=== PATIENT | male | born 1990 | race Caucasian/White ===

== ENCOUNTER 2016-05-08 16:40 | Emergency (ER) | payer OTHER, BC ==
[2016-05-08] MEDS ORDERED: Morphine 10 MG/ML Syringe IM ONE (16:48)
[2016-05-08] MEDS ORDERED: Sodium Chloride 0.9% 1,000 ML IV ONE (16:50)
[2016-05-08] MEDS ORDERED: Ondansetron 4 MG/2 ML SDV IVPUSH ONE (17:01)
[2016-05-08] MEDS ORDERED: LORazepam 2 MG/ML MDV IVPUSH ONE (17:48)
[2016-05-08] MEDS ORDERED: ceFAZolin 2 GM in Premix Bag 1 BAG IV ONE (17:48)
--- NOTE | 2016-05-08 18:13 | CR ---
EXAM DATE: 05/08/16 PATIENT'S AGE: 25 Patient: DAV MURRIETA Facility: [place], [place] Site . Site : 1990 Study: XRay Extremity hand [id number]/27/2017 5:05:49 PM Ordering Physician: Doctor Wilson Final Report: Indication: Injury Technique: Two views of the right hand Comparison: None available Findings: Bones: A focal irregularity with an ill-defined lucency at the base of the 5th metacarpal medially is of unclear chronicity. No dislocation. Joint spaces: Unremarkable. Soft tissues: Unremarkable. Impression: An age-indeterminate deformity at the base of the 5th metacarpal. Correlate for focal tenderness to exclude an acute fracture. Dictated by James Terry MD @ 05/08/2016 5:17:13 PM Dictated by: James Terry MD @ 05/08/2016 17:17:22 (Electronic Signature) Report Signed by Proxy and Original Signed Document filed in the Medical Record. MTDDee
--- NOTE | 2016-05-08 18:20 | EDM.PDOC ---
ED HPI Trauma - General Chief Complaint: Upper Extremity Injury/Pain Stated Complaint: PT HURT RT HAND Time Seen by Provider: 05/08/16 16:50 Source: Reports: Patient History Limitations: Reports: No limitations - History of Present Illness INITIAL COMMENTS - FREE TEXT/NARRATIVE: History of present illness: [25-year-old male comes in status post acute trauma to right hand with a crushing type injury while it were read hand noted to be slightly deformed at the base of the fingers as well as a significant flap type laceration in the palm and up the worst digit.] Review of systems: As per history of present illness and below otherwise all systems reviewed and negative. Past medical history: As per history of present illness and as reviewed below otherwise noncontributory. Surgical history: As per history of present illness and as reviewed below otherwise noncontributory. Social history: No reported history of drug or alcohol abuse. Family history: As per history of present illness and as reviewed below otherwise noncontributory. Physical exam: HEENT: Atraumatic, normocephalic, pupils reactive, negative for conjunctival pallor or scleral icterus, mucous membranes moist, throat clear, neck supple, nontender, trachea midline. Lungs: Clear to auscultation, breath sounds equal bilaterally, chest nontender. Heart: S1S2, regular, negative for clicks, rubs, or JVD. Abdomen: Soft, nondistended, nontender. Negative for masses or hepatosplenomegaly. Negative for costovertebral tenderness. Pelvis: Stable nontender. Genitourinary: Deferred. Rectal: Deferred. Extremities: Right hand with crush type injury to the base of the fourth phalanx , negative for cords or calf pain. Neurovascular unremarkable. Neuro: Awake, alert, oriented. Cranial nerves II through XII unremarkable. Cerebellum unremarkable. Motor and sensory unremarkable throughout. Exam nonfocal. Discussed case with Dr. 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 This would require patient to go to [facility] which he was reluctant to do, he asked if it could not be taking care of here.. Dr. Haas indicated she would be happy to see him in clinic first thing tomorrow. Diagnostics: [X-ray of right hand] Therapeutics: [IV fluid, morphine, Ativan, Rocephin,] Impression: [Hand laceration with hand fracture] Plan: [Discharge to home with antibiotics and pain medication followup with plastics in the a.m. for followup with Dr. Haas] Definitive disposition and diagnosis as appropriate pending reevaluation and review of above. Allergies/ADRs: Allergies IV Dye Allergy (Uncoded 03/08/16 13:53) Vomiting Home Medications: Ambulatory Orders Cephalexin [Keflex] 750 mg PO QID #40 capsule 05/08/16 Lisdexamfetamine Dimesylate [Vyvanse] 1 tab PO DAILY 05/08/16 [Confirmed ] Past Medical History - Past Health History Medical/Surgical History: Denies Medical/Surgical History Cardiovascular History: Reports: None Respiratory History: Reports: Asthma Other Respiratory History: childhood asthma Gastrointestinal History: Reports: Inflammatory bowel disease, Other (see below) Other Gastrointestinal History: Mesenteric cystic lymphangioma Genitourinary History: Reports: None Other Genitourinary History: 1x UTI Other Musculoskeletal History: right hand and wrist fracture Psychiatric History: Reports: ADHD, Anxiety, Panic attack Endocrine/Metabolic History: Reports: None Dermatologic History: Reports: None - Infectious Disease History Infectious Disease History: Reports: Chicken pox - Past Surgical History HEENT Surgical History: Reports: Tonsillectomy Other HEENT Surgeries/Procedures: adenoidectomy Respiratory Surgical History: Reports: None GI Surgical History: Reports: Other (see below) Other GI Surgeries/Procedures: repair of twisted intestine Male Surgical History: Reports: None Endocrine Surgical History: Reports: None Musculoskeletal Surgical History: Reports: None Social & Family History - Family History Family Medical History: Noncontributory - Tobacco Use Smoking Status *Q: Never Smoker Used Tobacco, but Quit: No Second Hand Smoke Exposure: No - Caffeine Use Caffeine Use: Reports: Coffee, Energy drinks, Tea - Alcohol Use Days Per Week of Alcohol Use: 1 Number of Drinks Per Day: 1 Total Drinks Per Week: 1 - Recreational Drug Use Recreational Drug Use: No Drug Use in Last 12 Months: No Recreational Drug Type: Reports: Marijuana/Hashish Recreational Drug Use Frequency: Not Used In Over 6 Months Recreational Drug Last Use: 4 Review of Systems - Review of Systems Review Of Systems: See Below (See history of present illness) Trauma Exam - Physical Exam Exam: See Below (See history of present illness) Course - Vital Signs Last Recorded V/S: Last Vital Signs Temp 37.1 C 05/08/16 18:15 Pulse 97 05/08/16 18:37 Resp 18 05/08/16 18:37 BP 128/78 05/08/16 18:37 Pulse Ox 99 05/08/16 18:37 - Orders/Labs/Meds Labs: Laboratory Tests 05/08/16 Range/Units 17:15 Urine Opiates Screen NEGATIVE (NEGATIVE) Ur Oxycodone Screen NEGATIVE (NEGATIVE) Urine Methadone Screen NEGATIVE (NEGATIVE) Ur Barbiturates Screen NEGATIVE (NEGATIVE) Ur Phencyclidine Scrn NEGATIVE (NEGATIVE) Ur Amphetamine Screen POSITIVE (NEGATIVE) U Methamphetamines Scrn NEGATIVE (NEGATIVE) U Benzodiazepines Scrn NEGATIVE (NEGATIVE) U Cocaine Metab Screen NEGATIVE (NEGATIVE) U Marijuana (THC) Screen NEGATIVE (NEGATIVE) Meds: Medications Discontinued Medications Generic Name Dose Route Start Last Admin Trade Name Freq PRN Reason Stop Dose Admin Sodium Chloride 1,000 mls @ 999 mls/hr 05/08/16 16:50 05/08/16 17:31 Normal Saline IV 05/08/16 17:50 999 mls/hr STAT ONE Administration Cefazolin Sodium 2,000 mg/ 100 mls @ 100 mls/hr 05/08/16 17:39 Sodium Chloride IV 05/08/16 18:38 ONETIME ONE Cefazolin Sodium/Dextrose 2 gm 50 mls @ 100 mls/hr 05/08/16 17:48 05/08/16 18 :20 / Premix IV 05/08/16 18:17 100 mls/hr ONETIME ONE Administration Lorazepam 1 mg 05/08/16 17:48 05/08/16 18:16 Ativan IVPUSH 05/08/16 17:49 1 mg ONETIME ONE Administration Morphine Sulfate 4 mg 05/08/16 16:48 05/08/16 17:08 Morphine IM 05/08/16 16:49 4 mg ONETIME ONE Administration Ondansetron HCl 4 mg 05/08/16 17:01 05/08/16 17:33 Zofran IVPUSH 05/08/16 17:02 4 mg ONETIME ONE Administration Departure - Departure Time of Disposition: 19:13 Disposition: Home, Self-Care 01 Condition: good Clinical Impression: Fracture of metacarpal bone Qualifiers: Encounter type: initial encounter Metacarpal bone: fifth Fracture type: open Metacarpal location: base Fracture alignment: nondisplaced Laterality: right Qualified Code(s): S62.346B - Nondisplaced fracture of base of fifth metacarpal bone, right hand, initial encounter for open fracture Prescriptions: Cephalexin [Keflex] 750 mg PO QID #40 capsule Instructions: Metacarpal Fracture, [id number] Forms: ED Department Discharge Additional Instructions: The following information is given to patients seen in the emergency department who are being discharged to home. This information is to outline your options for follow-up care. We provide all patients seen in our emergency department with a follow-up referral. The need for follow-up, as well as the timing and circumstances, are variable depending upon the specifics of your emergency department visit. If you don't have a primary care physician on staff, we will provide you with a referral. We always advise you to contact your personal physician following an emergency department visit to inform them of the circumstance of the visit and for follow-up with them and/or the need for any referrals to a consulting specialist. The emergency department will also refer you to a specialist when appropriate. This referral assures that you have the opportunity for follow-up care with a specialist. All of these measure are taken in an effort to provide you with optimal care, which includes your follow-up. Under all circumstances we always encourage you to contact your private physician who remains a resource for coordinating your care. When calling for follow-up care, please make the office aware that this follow-up is from your recent emergency room visit. If for any reason you are refused follow-up, please contact the [facility] Emergency Department at and asked to speak to the emergency department charge nurse. Followup with Dr. Romeo tomorrow as discussed Take medication as discussed Turned ED as needed as discussed [facility] [address] [place] [address], [address] [place] [address]
[2016-05-08 19:55] VITALS: BP 133/87
== END 2016-05-08 19:49 | disposition home or self-care (01) ==
LOC: MW.ED 16:40
DX: S62.346B Nondisplaced fracture of base of fifth metacarpal bone, right hand, initial encounter for open fracture (principal); J45.909 Unspecified asthma, uncomplicated; F41.9 Anxiety disorder, unspecified; Z87.440 Personal history of urinary (tract) infections; Z98.890 Other specified postprocedural states; Z91.041 Radiographic dye allergy status; W23.0XXA Caught, crushed, jammed, or pinched between moving objects, initial encounter
CPT/HCPCS: 73120; 96361; 96365; 96375; 99283; G0478; J0690; J2060; J2270; J2405; J7040; 80305

== ENCOUNTER 2016-07-14 09:59 | Inpatient (IN) | payer OTHER, BC ==
[2016-07-14] MEDS ORDERED: Ondansetron 4 MG Tab.DIS PO PRN (12:13)
[2016-07-14] MEDS ORDERED: KETOPROFEN 50 MG PO PRN (12:17)
[2016-07-14] MEDS: Sodium Chloride 0.9% 1,000 ML IV SCH ×2 (12:55→22:30)
[2016-07-14] MEDS: Piperacillin/Tazobactam 3.375 GM in Sodium Chloride 0.9% 50 ML IV SCH ×3 (12:57→23:00)
[2016-07-14] MEDS: Enoxaparin 40 MG/0.4 ML Syringe SUBCUT SCH (12:57)
--- NOTE | 2016-07-14 13:25 | PCM.HP ---
H&P History of Present Illness - General Date of Service: 07/14/16 Admit Problem/Dx: Admission Diagnosis/Problem Admission Diagnosis/Problem Abdominal pain Source of Information: Patient History Limitations: Reports: No limitations - History of Present Illness Initial Comments - Free Text/Narative: 26-year-old male that is a direct admit from his primary care physician's clinic as he presented with abdominal pain, urinary hesitancy and increased frequency. The patient does have a current diagnosis of panniculitis. He presented to his PCP with 4 days of increased frequency and hesitancy with urination. He has been afebrile. There is no burning, itching or irritation with urination. Denies any discharge. He is unsure if there is blood in the urine as he has been taking an [id number] medication for urinary tract infections that turns his urine orange. Patient notes that with the onset of his urinary symptoms he also has been experiencing left lower quadrant pain and discomfort secondary to his current diagnosis of panniculitis. He is never had these urinary symptoms with prior flareups of this disease. He recently decreased his daily dose of budesonide which he is taking for his pancolitis from 6 mg to 3 mg. With this decrease in dose the patient notes that he began having his left lower quadrant pain. The pain that he experiences with his diverticulitis is always in the left lower corner. At times will radiate to the back. He does see GI specialist at [place] in [place]. He notes that the only thing that would help with his abdominal pain is Toradol and his home medication of Vicoprofen. He did receive a 60 mg IM injection of Toradol by his PCP today. He notes that without the Toradol his pain we'll presented to 3 hours if he only takes ketoprofen. At its worse abdominal pain is rated as 10 out 10. He has been nauseous over the last few days with very little intake but denies any vomiting. Warm baths and heating pad seemed to decrease his abdominal pain. He also notes abdominal spasms when his panniculitis flares up. Patient also notes that he only has a bowel movement every 2 weeks and is currently taking MiraLax every day as recommended by his GI specialist. His last bowel movement was this morning. He denies any dark tarry stools or blood with his bowel movements. Patient has had multiple endoscopies and colonoscopies. In his PCPs clinic a CBC was done showing a white blood cell count of 19,000. BMP was unremarkable. Urinalysis showed the presence of glucose, positive nitrites. Patient is tachycardic at 107 beats per minute. Other vital signs are stable. Prostate exam was done the prostate feeling boggy but not much tenderness with exam. - Related Data Allergies/Adverse Reactions: Allergies Allergy/AdvReac Type Severity Reaction Status Date / Time IV Dye Allergy Vomiting Uncoded 03/08/16 13:53 Home Medications: Home Meds Albuterol [Ventolin HFA] 2 inh IH Q6H PRN 07/14/16 [History] Budesonide [Budesonide EC] 3 mg PO DAILY 07/14/16 [History] Cephalexin 500 mg PO TID 07/14/16 [History] Dextroamphetamine/Amphetamine [Dextroamp-Amphetamin 20 mg Tab] 20 mg PO BID@08, 12 07/14/16 [History] Ketoprofen 50 mg PO Q8H PRN 07/14/16 [History] Zolpidem Tartrate [Zolpidem Tartrate] 5 mg PO BEDTIME PRN 07/14/16 [History] Past Medical History - Past Health History Medical/Surgical History: Denies Medical/Surgical History Cardiovascular History: Reports: None Respiratory History: Reports: Asthma Other Respiratory History: childhood asthma, sports induced asthma Gastrointestinal History: Reports: Inflammatory bowel disease, Other (see below) Other Gastrointestinal History: Mesenteric cystic lymphangioma Genitourinary History: Reports: None Other Genitourinary History: 1x UTI Other Musculoskeletal History: right hand and wrist fracture Psychiatric History: Reports: ADHD, Anxiety, Panic attack Endocrine/Metabolic History: Reports: None Dermatologic History: Reports: None - Infectious Disease History Infectious Disease History: Reports: Chicken pox - Past Surgical History HEENT Surgical History: Reports: Tonsillectomy Other HEENT Surgeries/Procedures: adenoidectomy Respiratory Surgical History: Reports: None GI Surgical History: Reports: Other (see below) Other GI Surgeries/Procedures: repair of twisted intestine Male Surgical History: Reports: None Endocrine Surgical History: Reports: None Musculoskeletal Surgical History: Reports: None Social & Family History - Family History Family Medical History: Noncontributory - Tobacco Use Smoking Status *Q: Never Smoker Used Tobacco, but Quit: No Second Hand Smoke Exposure: No - Caffeine Use Caffeine Use: Reports: Coffee - Alcohol Use Days Per Week of Alcohol Use: 1 Number of Drinks Per Day: 1 Total Drinks Per Week: 1 - Recreational Drug Use Recreational Drug Use: Yes Drug Use in Last 12 Months: No Recreational Drug Type: Reports: Marijuana/Hashish Recreational Drug Use Frequency: Not Used In Over 6 Months Recreational Drug Last Use: 4 H&P Review of Systems - Review of Systems: Review Of Systems: See Below General: Reports: no symptoms HEENT: Reports: no symptoms Pulmonary: Reports: No Symptoms Cardiovascular: Reports: no symptoms Gastrointestinal: Reports: Abdominal pain (Left lower quadrant), Nausea. Denies : Vomiting Genitourinary: Reports: frequency (Increased), other (Hesitancy) Musculoskeletal: Reports: no symptoms Skin: Reports: no symptoms Psychiatric: Reports: no symptoms Neurological: Reports: No Symptoms Hematologic/Lymphatic: Reports: no symptoms Immunologic: Reports: no symptoms Exam - Exam Exam: See Below - Vital Signs Vital Signs: Last Vital Signs Temp 98.8 F 07/14/16 12:04 Pulse 93 07/14/16 10:42 Resp 18 07/14/16 12:04 BP 120/70 07/14/16 12:04 Pulse Ox 97 07/14/16 12:04 Weight: 167 lb 5.294 oz - Exam Quality Assessment: DVT prophylaxis (scd's, Lovenox) General: alert, oriented, cooperative Lungs: Clear to auscultation, Normal respiratory effort Cardiovascular: regular rhythm, tachycardia (107) Abdomen: normal bowel sounds, soft, tenderness (Left lower quadrant.), other ( Active spasm noted in the left lower quadrant.) Rectal (Males) Exam: Other (Prostate with palpation does feel boggy. No tenderness with exam.) Extremities: 3, normal inspection, 10 Peripheral Pulses: 2+: radial (L), radial (R) Skin: warm, dry, intact Neuro Extensive - Mental Status: alert, oriented x3, normal mood/affect, normal cognition Psychiatric: alert, normal affect, normal mood *Q Meaningful Use (ADM) - VTE *Q VTE Criteria *Q: - Stroke *Q Stroke Criteria *Q: - AMI *Q AMI Criteria *Q: - Problem List (1) Panniculitis SNOMED Code(s): 58353916 ICD Code: M79.3 - PANNICULITIS, UNSPECIFIED Status: Acute Current Visit: Yes (2) Dysuria SNOMED Code(s): 38623864 ICD Code: R30.0 - DYSURIA Status: Acute Current Visit: Yes (3) Urinary tract infection SNOMED Code(s): 50626927 ICD Code: N39.0 - URINARY TRACT INFECTION, SITE NOT SPECIFIED Status: Acute Priority: Medium Current Visit: No Problem List Initiated/Reviewed/Updated: Yes Orders Last 24hrs: Active Orders 24 hr Category Date Time Status Patient Status [ADT] Routine ADT 07/14/16 12:13 Active Antiembolic Devices [RC] PER UNIT ROUTINE Care 07/14/16 12:17 Active Communication Order [RC] ROUTINE Care 07/14/16 12:20 Active Intake and Output [RC] Q12H Care 07/14/16 12:14 Active Notify Provider Vital Signs [RC] ASDIRECTED Care 07/14/16 12:14 Active Oxygen Therapy [RC] PRN Care 07/14/16 12:13 Active Pulse Oximetry [RC] PRN Care 07/14/16 12:14 Active Up With Assistance [RC] ASDIRECTED Care 07/14/16 12:13 Active VTE/DVT Education [RC] PER UNIT ROUTINE Care 07/14/16 12:13 Active Vital Signs [RC] Q4H Care 07/14/16 12:13 Active Nothing per Oral Now Diet [DIET] Diet 07/14/16 Breakfast Active Abdomen Pelvis w wo Cont [CT] Routine Exams 07/14/16 12:21 Ordered BASIC METABOLIC PANEL,BMP [CHEM] AM Lab 07/15/16 05:11 Ordered BASIC METABOLIC PANEL,BMP [CHEM] AM Lab 07/16/16 05:11 Ordered BASIC METABOLIC PANEL,BMP [CHEM] AM Lab 07/17/16 05:11 Ordered CBC WITH AUTO DIFF [HEME] AM Lab 07/15/16 05:11 Ordered CBC WITH AUTO DIFF [HEME] AM Lab 07/16/16 05:11 Ordered CBC WITH AUTO DIFF [HEME] AM Lab 07/17/16 05:11 Ordered Clostridium Difficile [CDIFF TOX A+B] [OP] Routine Lab 07/14/16 12:19 Uncollected Cephalexin [Keflex] Med 07/14/16 14:00 Active 500 mg PO TID Enoxaparin [Lovenox] Med 07/14/16 12:15 Active 40 mg SUBCUT DAILY Meloxicam [Mobic] Med 07/14/16 13:30 Ordered 7.5 mg PO DAILY Ondansetron [Zofran ODT] Med 07/14/16 12:13 Active 4 mg PO Q4H PRN Patient's Own Medication [Ptom] Med 07/15/16 08:00 Active 1 each PO BID@08,12 Patient's Own Medication [Ptom] Med 07/15/16 09:00 Active 1 each PO DAILY Patient's Own Medication [Ptom] Med 07/14/16 12:17 Active 1 each PO Q8H PRN Piperacillin/Tazobactam [Piperacil-Tazobact] 3.375 gm Med 07/14/16 12:00 Active Sodium Chloride 0.9% [Normal Saline] 50 ml IV Q6H Sodium Chloride 0.9% [Normal Saline] 1,000 ml Med 07/14/16 12:15 Active IV ASDIRECTED Zaleplon [Sonata] Med 07/14/16 12:17 Active 5 mg PO BEDTIME PRN Sequential Compression Device [OM.PC] Per Unit Routine Oth 07/14/16 12:14 Ordered Resuscitation Status Routine Resus Stat 07/14/16 12:13 Ordered Medication Orders Cephalexin (Keflex) 500 mg PO TID [facility] Enoxaparin Sodium (Lovenox) 40 mg SUBCUT DAILY [facility] Last Admin: 07/14/16 12:57 Dose: 40 mg Piperacillin Sod/Tazobactam (Sod 3.375 gm/ Sodium Chloride) 50 mls @ 100 mls/ hr IV Q6H [facility] Last Admin: 07/14/16 12:57 Dose: 100 mls/hr Sodium Chloride (Normal Saline) 1,000 mls @ 125 mls/hr IV ASDIRECTED [facility] Last Admin: 07/14/16 12:55 Dose: 125 mls/hr Ondansetron HCl (Zofran Odt) 4 mg PO Q4H PRN PRN Reason: nausea, able to take PO Budesonide [ (Budesonide Ec] 6 Mg) 1 each PO DAILY [facility] Dextroamphetamine/Amphetamine [ Dextroamp-Amphetamin 20 Mg 1 each PO BID@08,12 [facility] Ketoprofen [ (Ketoprofen] 50 Mg) 1 each PO Q8H PRN PRN Reason: Pain Zaleplon (Sonata) 5 mg PO BEDTIME PRN PRN Reason: Sleep Assessment/Plan Comment:: 18-year-old male who was admitted with urinary hesitancy, increased frequency and abdominal pain secondary to panniculitis. #1 panniculitis: -To rule out other abdominal causes of the patient's abdominal pain, we will get an abdomen/pelvis CT. White blood cell count is 19,000. -Patient will be started on Zosyn 3.375 g IV every 6 hours. -IV normal saline fluids at 125 cc/hour. Home Medications have been resumed -his Budesonide has been increased to 6 mg daily from 3 mg. Patient was asymptomatic on 6 mg daily. -He did receive an IM Toradol injection in his PCPs clinic today. -Patient is currently NPO and will have his diet changed once CT results are back and if no further interventions are needed. -Differential also includes prostatitis secondary to body feeling prostate. #2. UTI: -Continue Keflex 500 mg 3 times a day which the patient is taking for recent hand surgery. -UA shows + nitrites -urine culture pending. Disposition: 2-4 days pending improvement.
[2016-07-14] MEDS ORDERED: Meloxicam 7.5 MG Tab PO SCH (13:30)
[2016-07-14] MEDS: Cephalexin 250 MG Cap PO SCH ×2 (14:24→22:54)
[2016-07-14] MEDS ORDERED: Iopamidol 755 MG/ML 500 ML Multipack Bottle IVPUSH STA (15:49)
[2016-07-14] MEDS ORDERED: traMADol 50 MG Tab PO PRN (15:50)
--- NOTE | 2016-07-14 16:06 | CT ---
CT of the abdomen and pelvis with contrast. HISTORY: Pain TECHNIQUE: Axial CT images were obtained of the abdomen and pelvis following administration of 100 m L of Isovue-370 in the left antecubital fossa without complication. Coronal and sagittal reconstruct ions obtained. FINDINGS: The lung bases are clear, no pleural effusion. The liver, spleen, adrenal glands, and pancreas appear normal. The gallbladder is unremarkable. Ther e is no bulky retroperitoneal lymphadenopathy or abdominal ascites. The kidneys enhance and function symmetrically without evidence of obstructive uropathy. There are a few prominent loops of jejunum within the left upper quadrant with adjacent stranding. T he degree of wall thickening and stranding appears however less prominent and compared to the CT viv ed 01/26/2015. Contrast is noted within the colon. There is mild mesenteric lymphadenopathy again no sarah. The appendix appears normal. The urinary bladder is normal. There is no bulky pelvic lymphadeno brittani or free pelvic fluid. No suspicious osseous abnormalities identified. IMPRESSION: 1. Mildly prominent loops of jejunum within the left upper quadrant with mild wall thickening and ad jacent stranding. There is no definite evidence of obstruction. This is consistent with patient's hi story of mesenteric lymphangioma. 2. Mild mesenteric lymphadenopathy also noted.
[2016-07-14] MEDS: Acetaminophen/HYDROcodone 325-5 MG Tab PO PRN (19:47)
[2016-07-15 05:47] LABS: CHLORIDE,CL 110 mmol/L (98-110); SODIUM,NA 139 mmol/L (136-146)
[2016-07-15] MEDS: Cephalexin 250 MG Cap PO SCH ×2 (05:47→14:12)
[2016-07-15] MEDS: Piperacillin/Tazobactam 3.375 GM in Sodium Chloride 0.9% 50 ML IV SCH ×3 (05:50→18:06)
[2016-07-15] MEDS: Sodium Chloride 0.9% 1,000 ML IV SCH (07:05)
[2016-07-15] MEDS: Acetaminophen/HYDROcodone 325-5 MG Tab PO PRN ×2 (08:30→15:08)
[2016-07-15] MEDS: Enoxaparin 40 MG/0.4 ML Syringe SUBCUT SCH (08:30)
[2016-07-15] MEDS ORDERED: BUDESONIDE 6 MG PO SCH (09:00)
[2016-07-15] MEDS ORDERED: Dicyclomine 10 MG Cap PO PRN (12:46)
[2016-07-15] MEDS ORDERED: Morphine 2 MG/ML Syringe IVPUSH PRN (12:47)
[2016-07-15] MEDS ORDERED: Acetaminophen 325 MG Tab PO PRN (13:44)
[2016-07-15] MEDS ORDERED: Ketorolac 30 MG/ML SDV IM ONE (13:45)
[2016-07-15 13:48] VITALS: BP 130/75
--- NOTE | 2016-07-15 13:48 | PCM.PN ---
- Review of Systems Systems Review Comment:: reports abdominal cramping and burning - Patient Data Vitals - most recent: Last Vital Signs Temp 36.6 C 07/15/16 07:00 Pulse 74 07/15/16 07:00 Resp 12 07/15/16 07:00 BP 113/70 07/15/16 07:00 Pulse Ox 96 07/15/16 12:13 Weight - most recent: 75.9 kg I&O - last 24 hours: Intake & Output 07/14/16 07/15/16 07/15/16 22:59 06:59 14:59 Intake Total 1689 615 415 Output Total 880 Balance 809 615 415 Lab Results last 24 hrs: Laboratory Results - last 24 hr 07/15/16 07/15/16 Range/Units 04:50 04:50 WBC 8.84 (4.0-11.0) K/uL RBC 4.47 L (4.50-5.90) M/uL Hgb 12.9 L (13.0-17.0) g/dL Hct 40.1 (38.0-50.0) % MCV 89.7 (80.0-98.0) fL MCH 28.9 (27.0-32.0) pg MCHC 32.2 (31.0-37.0) g/dL RDW Std Deviation 44.5 (28.0-62.0) fl RDW Coeff of [place] 14 (11.0-15.0) % Plt Count 259 (150-400) K/uL MPV 10.60 (7.40-12.00) fL Neut % (Auto) 64.4 (48.0-80.0) % Lymph % (Auto) 22.2 (16.0-40.0) % [place] % (Auto) 10.6 (0.0-15.0) % Eos % (Auto) 2.6 (0.0-7.0) % Baso % (Auto) 0.2 (0.0-1.5) % Neut # (Auto) 5.7 (1.4-5.7) K/uL Lymph # (Auto) 2.0 (0.6-2.4) K/uL [place] # (Auto) 0.9 H (0.0-0.8) K/uL Eos # (Auto) 0.2 (0.0-0.7) K/uL Baso # (Auto) 0.0 (0.0-0.1) K/uL Nucleated RBC % 0.0 /100WBC Nucleated RBCs # 0 K/uL Sodium 139 (136-146) mmol/L Potassium 3.4 L (3.5-5.1) mmol/L Chloride 110 (98-110) mmol/L Carbon Dioxide 24 (21-31) mmol/L BUN 15 (6.0-23.0) mg/dL Creatinine 0.9 (0.6-1.5) mg/dL Est Cr Clr Drug Dosing 131.19 mL/min Estimated GFR (MDRD) > 60.0 ml/min Glucose 117 H (60-110) mg/dL Calcium 7.9 L (8.8-10.8) mg/dL Luis Results last 24 hrs: Microbiology 07/14/16 17:00 Clostridium difficile Toxin A&B (M) - Final Stool / Feces - Stool, Liquid Negative for C.Diff Toxin/AG Med Orders - Current: Current Medications Acetaminophen (Tylenol) 650 mg PO Q4H PRN PRN Reason: Pain Hydrocodone Bitart/Acetaminophen ([place] 325-5 Mg) 1 tab PO Q6H PRN PRN Reason: Pain Last Admin: 07/15/16 08:30 Dose: 1 tab Cephalexin (Keflex) 500 mg PO TID [facility] Last Admin: 07/15/16 05:47 Dose: 500 mg Dicyclomine HCl (Bentyl) 10 mg PO TID PRN PRN Reason: Cramping Last Admin: 07/15/16 12:52 Dose: 10 mg Enoxaparin Sodium (Lovenox) 40 mg SUBCUT DAILY [facility] Last Admin: 07/15/16 08:30 Dose: 40 mg Piperacillin Sod/Tazobactam (Sod 3.375 gm/ Sodium Chloride) 50 mls @ 100 mls/ hr IV Q6H [facility] Last Admin: 07/15/16 12:00 Dose: 100 mls/hr Sodium Chloride (Normal Saline) 1,000 mls @ 125 mls/hr IV ASDIRECTED [facility] Last Admin: 07/15/16 07:05 Dose: 125 mls/hr Ibuprofen (Motrin) 400 mg PO Q6H PRN PRN Reason: Pain Ketorolac Tromethamine (Toradol) 30 mg IM ONETIME ONE Stop: 07/15/16 13:44 Morphine Sulfate (Morphine) 2 mg IVPUSH Q4H PRN PRN Reason: Pain Ondansetron HCl (Zofran Odt) 4 mg PO Q4H PRN PRN Reason: nausea, able to take PO Last Admin: 07/14/16 14:44 Dose: 4 mg Budesonide [ (Budesonide Ec] 6 Mg) 1 each PO DAILY [facility] Last Admin: 07/15/16 08:32 Dose: 1 each Dextroamphetamine/Amphetamine [ Dextroamp-Amphetamin 20 Mg 1 each PO BID@08,12 [facility] Last Admin: 07/15/16 12:02 Dose: 1 each Ketoprofen [ (Ketoprofen] 50 Mg) 1 each PO Q8H PRN PRN Reason: Pain Last Admin: 07/14/16 23:15 Dose: 1 each Zaleplon (Sonata) 5 mg PO BEDTIME PRN PRN Reason: Sleep Discontinued Medications Iopamidol (Isovue Multipack-370 (76%)) 100 ml IVPUSH ONETIME STA Stop: 07/14/16 15:50 Last Admin: 07/14/16 15:49 Dose: 100 ml Meloxicam (Mobic) 7.5 mg PO DAILY [facility] Last Admin: 07/14/16 14:24 Dose: 7.5 mg Tramadol HCl (Ultram) 50 mg PO Q6H PRN PRN Reason: Pain - Exam General: alert, oriented Lungs: Clear to auscultation, Normal respiratory effort Cardiovascular: Regular Rate, Regular Rhythm Abdomen: bowel sounds present, soft, no distension, tenderness (LLQ) Extremities: no edema - Problem List Review Problem List Initiated/Reviewed/Updated: Yes - My Orders Last 24 Hours: My Active Orders 07/15/16 12:46 Dicyclomine [Bentyl] 10 mg PO TID PRN 07/15/16 12:47 Morphine 2 mg IVPUSH Q4H PRN 07/15/16 13:43 Ketorolac [Toradol] 30 mg IM ONETIME ONE 07/15/16 13:44 Acetaminophen [Tylenol] 650 mg PO Q4H PRN 07/15/16 20:00 Ibuprofen [Motrin] 400 mg PO Q6H PRN - Plan Plan:: 18-year-old male who was admitted with urinary hesitancy, increased frequency and abdominal pain secondary to panniculitis. #1 panniculitis: leukocytosis improved, still reports abdominal pain. Patient on zosyn and budisonide increased to 6mg daily. On NSAIDs and acetaminophen for pain as narcotics cause nausea.
[2016-07-15] MEDS ORDERED: Sodium Chloride 0.9% with KCl 1,000 ML IV SCH (15:00)
[2016-07-15] MEDS ORDERED: Ibuprofen 400 MG Tab PO PRN (20:00)
== END 2016-07-15 17:55 | disposition home or self-care (01) | DRG 385 ==
LOC: UNDOADMOB 09:59 → MW.MS 09:59 → OBSVTOIN 12:13
PROVIDERS: ADMIT Internal Medicine; ATTEND Internal Medicine
DX: M79.3 Panniculitis, unspecified (principal); N39.0 Urinary tract infection, site not specified; R30.0 Dysuria; J45.909 Unspecified asthma, uncomplicated; K58.9 Irritable bowel syndrome, unspecified; D18.1 Lymphangioma, any site; F90.9 Attention-deficit hyperactivity disorder, unspecified type; F41.9 Anxiety disorder, unspecified; Z91.041 Radiographic dye allergy status; R50.9 Fever, unspecified; D72.829 Elevated white blood cell count, unspecified
CPT/HCPCS: 36415; 74177; 74177-26; 80048; 85025; 87324; A9270-GY; J1650; J1885; J2543; J3480; J7040; J7050; Q9967

== ENCOUNTER → 2016-07-14 | Outpatient (CLI) | payer OTHER, BC ==
[2016-07-14 09:22] LABS: CHLORIDE,CL 105 mmol/L (98-110); SODIUM,NA 141 mmol/L (136-146)
== END ==
LOC: MW.CHRC 08:38
PROVIDERS: ATTEND Family Medicine
DX: R50.9 Fever, unspecified (principal); D72.829 Elevated white blood cell count, unspecified
CPT/HCPCS: 36415; 80048; 81001; 85025; 87040; 87086

== ENCOUNTER 2016-12-11 12:41 | Observation (INO) | payer OTHER, BC ==
[2016-12-11] MEDS ORDERED: Sodium Chloride 0.9% 10 ML Syringe FLUSH PRN (13:09)
[2016-12-11] MEDS ORDERED: Sodium Chloride 0.9% 2.5 ML Syringe FLUSH PRN (13:09)
[2016-12-11] MEDS ORDERED: Pantoprazole 40 MG Vial IVPUSH ONE (13:09)
--- NOTE | 2016-12-11 13:17 | EDM.PDOC ---
ED HPI GENERAL MEDICAL PROBLEM - General Chief Complaint: Back Pain or Injury Stated Complaint: URINARY ISSUES Time Seen by Provider: 12/11/16 13:11 Source of Information: Reports: Patient History Limitations: Reports: No Limitations - History of Present Illness INITIAL COMMENTS - FREE TEXT/NARRATIVE: HISTORY AND PHYSICAL: 26-year-old male presents with abdominal pain on the left side dating to his back bilaterally History of Present Illness: []November 06 patient had second surgery, in [facility] for bowel resection, cystic areas were removed. Patient had experienced this type of pain previous to having his bowel surgeries. First surgery occurred with Dr. Rhea barnhart at . Patient states that last week he felt he had an obstruction so he drank magnesium citrate. He then experienced 3 days of abdominal pain/ stomach pain Review of Systems: As per history of present illness and below otherwise all systems reviewed and negative. Past medical history: As per history of present illness and as reviewed below otherwise noncontributory. Surgical history: As per history of present illness and as reviewed below otherwise noncontributory. Social history: No reported history of drug or alcohol abuse. Family history: As per history of present illness and as reviewed below otherwise noncontributory. Physical exam: Alert and oriented male answering questions in full sentences without shortness of breath. Nontoxic in appearance HEENT: Atraumatic, normocehpalic, pupils reactive, negative for conjunctival pallor or scleral icterus, mucous membranes moist, throat clear, neck supple, nontender, trachea midline. Lungs: Clear to auscultation, breath sounds equal bilaterally, chest non tender. Heart: S1S2, regular, negative for clicks, rubs, or JVD. Abdomen: Soft, nondistended, tender to light palpation. Healing scar is noted to the left of the navel. Negative for masses or hepatossplenmegaly. Negative for costovertebral tenderness. Pelvis: Stable nontender. Genitourinary: Deferred. Rectal: Deferred Extremities: Atraumatic, negative for cords or calf pain. Neurovascular unremarkable. Neuro: Awake, alert, oriented. Cranial nerves II through XII unremarkable. Cerebellum unremarkable. Motor and sensory unremarkable throughout. Exam nonfocal. Diagnostics: [CBC CMP amylase lipase CT abdomen pelvis without contrast] Therapeutics: [IV 1 L normal saline Protonix] Impression: [abd pain] dehydration Plan: [Discharged to home Take stool softener daily hyocosamine per prescription zofran per prescription Definitive disposition and diagnosis as appropriate pending reevaluation and review of above. low back Pain Score (Numeric/FACES): 7 - Related Data Allergies Allergy/AdvReac Type Severity Reaction Status Date / Time IV Dye Allergy Vomiting Uncoded 12/11/16 12:58 Home Meds: Home Meds Dextroamphetamine/Amphetamine [Adderall 20 mg Tablet] 1 tab PO DAILY 12/11/16 [ History] Hyoscyamine [Hyomax-SL] 0.125 mg SL Q4H PRN #21 tab.sl 12/11/16 [Rx] Ondansetron [Zofran ODT] 4 mg PO Q8H #12 tab.dis 12/11/16 [Rx] Past Medical History - Past Health History Medical/Surgical History: Denies Medical/Surgical History Cardiovascular History: Reports: None Respiratory History: Reports: Asthma Other Respiratory History: childhood asthma, sports induced asthma Gastrointestinal History: Reports: Inflammatory Bowel Disease, Other (See Below) Other Gastrointestinal History: Mesenteric cystic lymphangioma Genitourinary History: Reports: None Other Genitourinary History: 1x UTI Other Musculoskeletal History: right hand and wrist fracture Psychiatric History: Reports: ADHD, Anxiety, Panic Attack Endocrine/Metabolic History: Reports: None Dermatologic History: Reports: None - Infectious Disease History Infectious Disease History: Reports: Chicken Pox - Past Surgical History HEENT Surgical History: Reports: Tonsillectomy Other HEENT Surgeries/Procedures: adenoidectomy Respiratory Surgical History: Reports: None GI Surgical History: Reports: Other (See Below) Male Surgical History: Reports: None Endocrine Surgical History: Reports: None Musculoskeletal Surgical History: Reports: None Social & Family History - Family History Family Medical History: Noncontributory - Tobacco Use Smoking Status *Q: Never Smoker Used Tobacco, but Quit: No Second Hand Smoke Exposure: No - Caffeine Use Caffeine Use: Reports: Coffee - Alcohol Use Days Per Week of Alcohol Use: 1 Number of Drinks Per Day: 1 Total Drinks Per Week: 1 - Recreational Drug Use Recreational Drug Use: No Drug Use in Last 12 Months: No Recreational Drug Type: Reports: Marijuana/Hashish Recreational Drug Use Frequency: Not Used In Over 6 Months Recreational Drug Last Use: 4 ED ROS GENERAL - Review of Systems Review Of Systems: ROS reveals no pertinent complaints other than HPI. ED EXAM, GI/ABD - Physical Exam Exam: See Below (See dictation) Course - Vital Signs Last Recorded V/S: Last Vital Signs Temp 36.8 C 12/11/16 12:41 Pulse 101 H 12/11/16 12:41 Resp 16 12/11/16 12:41 BP 124/72 12/11/16 12:41 Pulse Ox 97 12/11/16 12:41 - Orders/Labs/Meds Orders: Active Orders 24 hr Category Date Time Status Abdomen Pelvis wo Cont [CT] Stat Exams 12/11/16 13:09 Taken Sodium Chloride 0.9% [Normal Saline] 1,000 ml Med 12/11/16 15:22 Active IV STAT Sodium Chloride 0.9% [Saline Flush] Med 12/11/16 13:09 Active 10 ml FLUSH ASDIRECTED PRN Sodium Chloride 0.9% [Saline Flush] Med 12/11/16 13:09 Active 2.5 ml FLUSH ASDIRECTED PRN Saline Lock Insert [OM.PC] Stat Oth 12/11/16 13:08 Ordered Medication Orders Sodium Chloride (Normal Saline) 1,000 mls @ 999 mls/hr IV STAT ONE Stop: 12/11/16 16:22 Sodium Chloride (Saline Flush) 10 ml FLUSH ASDIRECTED PRN PRN Reason: Keep Vein Open Last Admin: 12/11/16 14:31 Dose: 10 ml Sodium Chloride (Saline Flush) 2.5 ml FLUSH ASDIRECTED PRN PRN Reason: Keep Vein Open Last Admin: 12/11/16 14:32 Dose: 2.5 ml Labs: Laboratory Tests 12/11/16 12/11/16 12/11/16 Range/Units 13:25 13:25 13:25 WBC 17.50 H (4.0-11.0) K/uL RBC 5.33 (4.50-5.90) M/uL Hgb 15.5 (13.0-17.0) g/dL Hct 46.3 (38.0-50.0) % MCV 86.9 (80.0-98.0) fL MCH 29.1 (27.0-32.0) pg MCHC 33.5 (31.0-37.0) g/dL RDW Std Deviation 43.7 (28.0-62.0) fl RDW Coeff of [place] 14 (11.0-15.0) % Plt Count 319 (150-400) K/uL MPV 10.40 (7.40-12.00) fL Neut % (Auto) 83.1 H (48.0-80.0) % Lymph % (Auto) 8.2 L (16.0-40.0) % [place] % (Auto) 7.6 (0.0-15.0) % Eos % (Auto) 0.9 (0.0-7.0) % Baso % (Auto) 0.2 (0.0-1.5) % Neut # (Auto) 14.5 H (1.4-5.7) K/uL Lymph # (Auto) 1.4 (0.6-2.4) K/uL [place] # (Auto) 1.3 H (0.0-0.8) K/uL Eos # (Auto) 0.2 (0.0-0.7) K/uL Baso # (Auto) 0.0 (0.0-0.1) K/uL Nucleated RBC % 0.0 /100WBC Nucleated RBCs # 0 K/uL Sodium 140 (136-146) mmol/L Potassium 4.3 (3.5-5.1) mmol/L Chloride 100 (98-110) mmol/L Carbon Dioxide 29 (21-31) mmol/L BUN 14 (6.0-23.0) mg/dL Creatinine 1.0 (0.6-1.5) mg/dL Est Cr Clr Drug Dosing 120.71 mL/min Estimated GFR (MDRD) > 60.0 ml/min Glucose 95 (60-110) mg/dL Calcium 9.3 (8.8-10.8) mg/dL Total Bilirubin 0.3 (0.1-1.5) mg/dL AST 62 H (5-40) IU/L ALT 121 H (8-54) IU/L Alkaline Phosphatase 152 H (40-150) Total Protein 7.5 (6.0-8.0) g/dL Albumin 4.1 (3.5-5.0) g/dL Globulin 3.4 (2.0-3.5) g/dL Albumin/Globulin Ratio 1.2 L (1.3-2.8) Amylase 46 (10-90) U/L Lipase 20 (7-80) U/L Urine Color Urine Appearance Urine pH (5.0-8.0) Ur Specific [place] (1.001-1.035) Urine Protein (NEGATIVE) mg/dL Urine Glucose (UA) (NEGATIVE) mg/dL Urine Ketones (NEGATIVE) mg/dL Urine Occult Blood (NEGATIVE) Urine Nitrite (NEGATIVE) Urine Bilirubin (NEGATIVE) Urine Urobilinogen (<2.0) EU/dL Ur Leukocyte Esterase (NEGATIVE) Urine RBC (0-2/HPF) Urine WBC (0-5/HPF) Ur Epithelial Cells (NONE-FEW) Urine Bacteria (NEGATIVE) 12/11/16 Range/Units 13:45 WBC (4.0-11.0) K/uL RBC (4.50-5.90) M/uL Hgb (13.0-17.0) g/dL Hct (38.0-50.0) % MCV (80.0-98.0) fL MCH (27.0-32.0) pg MCHC (31.0-37.0) g/dL RDW Std Deviation (28.0-62.0) fl RDW Coeff of [place] (11.0-15.0) % Plt Count (150-400) K/uL MPV (7.40-12.00) fL Neut % (Auto) (48.0-80.0) % Lymph % (Auto) (16.0-40.0) % [place] % (Auto) (0.0-15.0) % Eos % (Auto) (0.0-7.0) % Baso % (Auto) (0.0-1.5) % Neut # (Auto) (1.4-5.7) K/uL Lymph # (Auto) (0.6-2.4) K/uL [place] # (Auto) (0.0-0.8) K/uL Eos # (Auto) (0.0-0.7) K/uL Baso # (Auto) (0.0-0.1) K/uL Nucleated RBC % /100WBC Nucleated RBCs # K/uL Sodium (136-146) mmol/L Potassium (3.5-5.1) mmol/L Chloride (98-110) mmol/L Carbon Dioxide (21-31) mmol/L BUN (6.0-23.0) mg/dL Creatinine (0.6-1.5) mg/dL Est Cr Clr Drug Dosing mL/min Estimated GFR (MDRD) ml/min Glucose (60-110) mg/dL Calcium (8.8-10.8) mg/dL Total Bilirubin (0.1-1.5) mg/dL AST (5-40) IU/L ALT (8-54) IU/L Alkaline Phosphatase (40-150) Total Protein (6.0-8.0) g/dL Albumin (3.5-5.0) g/dL Globulin (2.0-3.5) g/dL Albumin/Globulin Ratio (1.3-2.8) Amylase (10-90) U/L Lipase (7-80) U/L Urine Color YELLOW Urine Appearance CLEAR Urine pH 6.5 (5.0-8.0) Ur Specific [place] 1.020 (1.001-1.035) Urine Protein NEGATIVE (NEGATIVE) mg/dL Urine Glucose (UA) NEGATIVE (NEGATIVE) mg/dL Urine Ketones NEGATIVE (NEGATIVE) mg/dL Urine Occult Blood NEGATIVE (NEGATIVE) Urine Nitrite NEGATIVE (NEGATIVE) Urine Bilirubin NEGATIVE (NEGATIVE) Urine Urobilinogen 0.2 (<2.0) EU/dL Ur Leukocyte Esterase NEGATIVE (NEGATIVE) Urine RBC 0-1 (0-2/HPF) Urine WBC 0-1 (0-5/HPF) Ur Epithelial Cells RARE (NONE-FEW) Urine Bacteria RARE (NEGATIVE) Meds: Medications Generic Name Dose Route Start Last Admin Trade Name Freq PRN Reason Stop Dose Admin Sodium Chloride 1,000 mls @ 999 mls/hr 12/11/16 15:22 Normal Saline IV 12/11/16 16:22 STAT ONE Sodium Chloride 10 ml 12/11/16 13:09 12/11/16 14:31 Saline Flush FLUSH 10 ml ASDIRECTED PRN Administration Keep Vein Open Sodium Chloride 2.5 ml 12/11/16 13:09 12/11/16 14:32 Saline Flush FLUSH 2.5 ml ASDIRECTED PRN Administration Keep Vein Open Discontinued Medications Generic Name Dose Route Start Last Admin Trade Name Freq PRN Reason Stop Dose Admin Hyoscyamine 0.125 mg 12/11/16 15:23 Hyosyne PO 12/11/16 15:24 ONETIME ONE Sodium Chloride 1,000 mls @ 999 mls/hr 12/11/16 13:18 12/11/16 14:31 Normal Saline IV 12/11/16 14:18 999 mls/hr STAT ONE Administration Ketorolac Tromethamine 30 mg 12/11/16 15:22 Toradol IVPUSH 12/11/16 15:23 ONETIME ONE Pantoprazole Sodium 80 mg 12/11/16 13:09 12/11/16 14:31 Protonix Iv IVPUSH 12/11/16 13:10 80 mg .BOLUS ONE Administration Departure - Departure Time of Disposition: 15:52 Disposition: Home, Self-Care 01 Condition: Good Clinical Impression: Abdominal pain Qualifiers: Abdominal location: lower abdomen, unspecified Qualified Code(s): R10.30 - Lower abdominal pain, unspecified - Discharge Information Prescriptions: Hyoscyamine [Hyomax-SL] 0.125 mg SL Q4H PRN #21 tab.sl PRN Reason: Abdominal Pain Ondansetron [Zofran ODT] 4 mg PO Q8H #12 tab.dis Referrals: PCP,None [Primary Care Provider] - Forms: ED Department Discharge Additional Instructions: The following information is given to patients seen in the emergency department who are being discharged to home. This information is to outline your options for follow-up care. We provide all patients seen in our emergency department with a follow-up referral. The need for follow-up, as well as the timing and circumstances, are variable depending upon the specifics of your emergency department visit. If you don't have a primary care physician on staff, we will provide you with a referral. We always advise you to contact your personal physician following an emergency department visit to inform them of the circumstance of the visit and for follow-up with them and/or the need for any referrals to a consulting specialist. The emergency department will also refer you to a specialist when appropriate. This referral assures that you have the opportunity for followup care with a specialist. All of these measure are taken in an effort to provide you with optimal care, which includes your followup. Under all circumstances we always encourage you to contact your private physician who remains a resource for coordinating your care. When calling for followup care, please make the office aware that this follow-up is from your recent emergency room visit. If for any reason you are refused follow-up, please contact the emergency department at and asked to speak to the emergency department charge nurse. Continue to hydrate small sips every 20 minutes Zofran has been ordered for you to help with nausea Levsin 0.125mg one tablet every 4 hours when necessary abdominal cramping Follow-up with your specialist at [facility] Recommend that you take stool softener daily - My Orders Last 24 Hours: My Active Orders 12/11/16 13:08 Saline Lock Insert [OM.PC] Stat 12/11/16 13:09 Abdomen Pelvis wo Cont [CT] Stat Sodium Chloride 0.9% [Saline Flush] 10 ml FLUSH ASDIRECTED PRN Sodium Chloride 0.9% [Saline Flush] 2.5 ml FLUSH ASDIRECTED PRN 12/11/16 15:22 Sodium Chloride 0.9% [Normal Saline] 1,000 ml IV STAT - Assessment/Plan Last 24 Hours: My Active Orders 12/11/16 13:08 Saline Lock Insert [OM.PC] Stat 12/11/16 13:09 Abdomen Pelvis wo Cont [CT] Stat Sodium Chloride 0.9% [Saline Flush] 10 ml FLUSH ASDIRECTED PRN Sodium Chloride 0.9% [Saline Flush] 2.5 ml FLUSH ASDIRECTED PRN 12/11/16 15:22 Sodium Chloride 0.9% [Normal Saline] 1,000 ml IV STAT
[2016-12-11] MEDS ORDERED: Sodium Chloride 0.9% 1,000 ML IV ONE ×2 (13:18→15:22)
[2016-12-11 13:54] LABS: CHLORIDE,CL 100 mmol/L (98-110); SODIUM,NA 140 mmol/L (136-146)
[2016-12-11] MEDS ORDERED: Ketorolac 30 MG/ML SDV IVPUSH ONE (15:22)
[2016-12-11] MEDS ORDERED: Hyoscyamine 0.125 MG/ML Bottle PO ONE (15:23)
[2016-12-11] MEDS ORDERED: Hyoscyamine 0.125 MG Tab.SL PO ONE (16:15)
[2016-12-11] MEDS ORDERED: Morphine 10 MG/ML Syringe IV ONE (16:48)
--- NOTE | 2016-12-11 16:52 | CT ---
EXAM DATE: 12/11/16 PATIENT'S AGE: 26 Patient: DAV MURRIETA Facility: [place], [place] Site . Site : [id number] Study: CT Abdomen/Pelvis [id number] 1:57:05 PM Ordering Physician: Doctor Wilson Final Report: INDICATION: Abdominal pain. TECHNIQUE: CT abdomen and pelvis without contrast. COMPARISON: 03/08/2016. FINDINGS: LOWER CHEST: Unremarkable. LIVER: Normal in size and attenuation. No masses. GALLBLADDER AND BILE DUCTS: No stones or inflammation. No biliary dilatation. PANCREAS: Unremarkable. No mass or inflammation. SPLEEN: Normal in size. No masses. ADRENAL GLANDS: Normal in size. No nodules. KIDNEYS: Normal in size. No masses, stones, or hydronephrosis. GI TRACT: There is wall thickening and inflammation involving moderately dilated small bowel loops in the proximal jejunum. Remainder of the GI tract is normal in caliber and appearance. VASCULATURE: Unremarkable. LYMPH NODES: Multiple enlarged mesenteric lymph nodes are present in the left upper quadrant. OMENTUM/PERITONEUM/ABDOMINAL WALL: Unremarkable. No sign of mass or infiltration. No free air or significant free fluid. PELVIS: Unremarkable. No pelvic masses. BONES: Unremarkable for age. IMPRESSION: There is dilatation and inflammation of proximal jejunal loops with multiple enlarged mesenteric lymph nodes in the same region of the left upper quadrant. These findings are very similar to those seen on the prior study from February 2016. Recurrent infectious or inflammatory process is suspected. No convincing evidence for internal hernia or mechanical bowel obstruction. Remainder of the exam is unremarkable. Dictated by Vitaliy Castellon MD @ 12/11/2016 3:01:00 PM Dictated by: Vitaliy Castellon MD @ 12/11/2016 15:01:06 (Electronic Signature) Report Signed by Proxy. JOSR
[2016-12-11] MEDS ORDERED: metroNIDAZOLE/Normal Saline 500 MG in Premix Bag 1 BAG IV ONE (16:54)
[2016-12-11] MEDS: Ciprofloxacin in D5W 400 MG in Premix Bag 1 BAG IV SCH ×2 (18:19)
[2016-12-11] MEDS ORDERED: Ketorolac 15 MG/ML SDV IVPUSH PRN (18:21)
--- NOTE | 2016-12-11 18:23 | PCM.HP ---
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 He was recently at [facility] where he reportedly had six inches of bowel removed. He presents today with four day history of left abdominal pain that radiates to the back. He was seen in the ED and noted to have a leukocytosis of 17,000. CT scan of abdomen reported multiple dilated and inflammed loops of jejunum and enlarged mesenteric lymph nodes with no evidence of mechanical obstruction. low back Pain Score (Numeric/FACES): 4 - Related Data Allergies/Adverse Reactions: Allergies Allergy/AdvReac Type Severity Reaction Status Date / Time IV Dye Allergy Vomiting Uncoded 12/11/16 12:58 Home Medications: Home Meds Dextroamphetamine/Amphetamine [Adderall 20 mg Tablet] 20 mg PO DAILY 12/11/16 [ History] Hyoscyamine [Hyomax-SL] 0.125 mg SL Q4H PRN #21 tab.sl 12/11/16 [Rx] Ondansetron [Zofran ODT] 4 mg PO Q8H #12 tab.dis 12/11/16 [Rx] Ciprofloxacin [IJD: Ciprofloxacin HCl] 500 mg PO BID #28 tab 12/12/16 [Rx] Ketoconazole [Nizoral 2% Shampoo] 1 applic TOP Q3D #1 bottle 12/12/16 [Rx] metroNIDAZOLE [Flagyl] 500 mg PO Q8H #42 tablet 12/12/16 [Rx] Past Medical History - Past Health History Medical/Surgical History: Denies Medical/Surgical History Cardiovascular History: Reports: None Respiratory History: Reports: Asthma Other Respiratory History: childhood asthma, sports induced asthma Gastrointestinal History: Reports: Inflammatory Bowel Disease, Other (See Below) Other Gastrointestinal History: Mesenteric cystic lymphangioma Genitourinary History: Reports: None Other Genitourinary History: 1x UTI Other Musculoskeletal History: right hand and wrist fracture Psychiatric History: Reports: ADHD, Anxiety, Panic Attack Endocrine/Metabolic History: Reports: None Dermatologic History: Reports: None - Infectious Disease History Infectious Disease History: Reports: Chicken Pox - Past Surgical History HEENT Surgical History: Reports: Tonsillectomy Other HEENT Surgeries/Procedures: adenoidectomy Respiratory Surgical History: Reports: None GI Surgical History: Reports: Other (See Below) Male Surgical History: Reports: None Endocrine Surgical History: Reports: None Musculoskeletal Surgical History: Reports: None Social & Family History - Family History Family Medical History: Noncontributory - Tobacco Use Smoking Status *Q: Never Smoker Used Tobacco, but Quit: No Second Hand Smoke Exposure: Yes - Caffeine Use Caffeine Use: Reports: Coffee - Alcohol Use Days Per Week of Alcohol Use: 1 Number of Drinks Per Day: 1 Total Drinks Per Week: 1 - Recreational Drug Use Recreational Drug Use: No Drug Use in Last 12 Months: No Recreational Drug Type: Reports: Marijuana/Hashish Recreational Drug Use Frequency: Not Used In Over 6 Months Recreational Drug Last Use: 4 H&P Review of Systems - Review of Systems: Review Of Systems: ROS reveals no pertinent complaints other than HPI. Exam - Exam Exam: See Below - Vital Signs Vital Signs: Last Vital Signs Temp 37.2 C 12/11/16 17:29 Pulse 98 12/11/16 17:29 Resp 20 12/11/16 17:29 BP 130/67 12/11/16 17:29 Pulse Ox 97 12/11/16 17:29 Weight: 77.8 kg - Exam General: Alert, Oriented, 4 Lungs: Clear to Auscultation, Normal Respiratory Effort Cardiovascular: Regular Rate, Regular Rhythm GI/Abdominal Exam: Soft, Tender (mild tenderness in lower abdomen). No: Guarding, Rigid, Rebound Extremities: Normal Range of Motion, Non-Tender, No Pedal Edema Skin: Warm, Dry, Intact Neurological: No: Focal Deficit - Patient Data Result Diagrams: 12/12/16 04:58 12/12/16 04:58 *Q Meaningful Use (ADM) - VTE *Q VTE Criteria *Q: - Stroke *Q Stroke Criteria *Q: - AMI *Q AMI Criteria *Q: Problem List Initiated/Reviewed/Updated: Yes Orders Last 24hrs: Active Orders 24 hr Category Date Time Status Ketorolac [Toradol] Med 12/11/16 18:21 Ordered 30 mg IVPUSH Q8H PRN metroNIDAZOLE/Normal Saline [Flagyl 500 MG in NS 100 ML Med 12/11/16 18:30 Ordered ] 500 mg Premix Bag 1 bag IV Q8H Medication Orders Ciprofloxacin/Dextrose 400 mg/ (Premix) 200 mls @ 200 mls/hr IV Q12H DIONICIO Last Admin: 12/11/16 18:19 Dose: 200 mls/hr Metronidazole 500 mg/ Premix 100 mls @ 100 mls/hr IV Q8H DIONICIO Sodium Chloride (Saline Flush) 10 ml FLUSH ASDIRECTED PRN PRN Reason: Keep Vein Open Last Admin: 12/11/16 14:31 Dose: 10 ml Sodium Chloride (Saline Flush) 2.5 ml FLUSH ASDIRECTED PRN PRN Reason: Keep Vein Open Last Admin: 12/11/16 14:32 Dose: 2.5 ml Assessment/Plan Comment:: 26 yo male admitted with flare of his mesenteric cystic lymphangioma. Will treat with IV fluids, bowel rest, ciprofloxacin and Flagyl.
[2016-12-11] MEDS ORDERED: Ketorolac 30 MG/ML SDV IVPUSH PRN (18:27)
[2016-12-11] MEDS ORDERED: HYDROmorphone 1 MG/ML Syringe IVPUSH PRN (18:41)
[2016-12-11] MEDS: metroNIDAZOLE/Normal Saline 500 MG in Premix Bag 1 BAG IV SCH (19:45)
[2016-12-11] MEDS: Sodium Chloride 0.9% 1,000 ML IV SCH (21:04)
[2016-12-12] MEDS: Sodium Chloride 0.9% 1,000 ML IV SCH ×2 (00:29→10:22)
[2016-12-12] MEDS: metroNIDAZOLE/Normal Saline 500 MG in Premix Bag 1 BAG IV SCH ×2 (01:41→10:18)
[2016-12-12] MEDS: Ciprofloxacin in D5W 400 MG in Premix Bag 1 BAG IV SCH ×2 (04:01)
[2016-12-12 05:31] LABS: CHLORIDE,CL 110 mmol/L (98-110); SODIUM,NA 140 mmol/L (136-146)
--- NOTE | 2016-12-12 11:35 | PCM.DCSUM1 ---
Discharge Summary - Hospital Course Brief History: 26 yo male with pmh of mesenteric cystic lymphangioma who has had multiple admission for abdominal pain from this inflammatory disease. He was recently at [facility] [facility] where he reportedly had six inches of bowel removed. He presents today with four day history of left abdominal pain that radiates to the back. He was seen in the ED and noted to have a leukocytosis of 17,000. CT scan of abdomen reported multiple dilated and inflammed loops of jejunum and enlarged mesenteric lymph nodes with no evidence of mechanical obstruction. - Discharge Data Discharge Date: 12/12/16 Discharge Disposition: Home, Self-Care 01 Condition: Good - Patient Instructions Diet: Full Liquid Diet (start FL for next couple days then slowly advance to GI soft low fiber), GI Soft/Low Residue/Low Fiber Activity: As Tolerated Driving: May Drive Today Showering/Bathing: May Shower Notify Provider of: Fever, Increased Pain, Swelling and Redness, Drainage, Nausea and/or Vomiting - Discharge Plan Prescriptions/Med Rec: Ciprofloxacin [IJD: Ciprofloxacin HCl] 500 mg PO BID #28 tab Hyoscyamine [Hyomax-SL] 0.125 mg SL Q4H PRN #21 tab.sl PRN Reason: Abdominal Pain Ketoconazole [Nizoral 2% Shampoo] 1 applic TOP Q3D #1 bottle metroNIDAZOLE [Flagyl] 500 mg PO Q8H #42 tablet Ondansetron [Zofran ODT] 4 mg PO Q8H #12 tab.dis Home Medications: Home Meds Dextroamphetamine/Amphetamine [Adderall 20 mg Tablet] 20 mg PO DAILY 12/11/16 [ History] Hyoscyamine [Hyomax-SL] 0.125 mg SL Q4H PRN #21 tab.sl 12/11/16 [Rx] Ondansetron [Zofran ODT] 4 mg PO Q8H #12 tab.dis 12/11/16 [Rx] Ciprofloxacin [IJD: Ciprofloxacin HCl] 500 mg PO BID #28 tab 12/12/16 [Rx] Ketoconazole [Nizoral 2% Shampoo] 1 applic TOP Q3D #1 bottle 12/12/16 [Rx] metroNIDAZOLE [Flagyl] 500 mg PO Q8H #42 tablet 12/12/16 [Rx] Patient Handouts: Abdominal Pain, Adult, Ketoconazole shampoo, Ondansetron tablets, Hyoscyamine tablets, Ciprofloxacin tablets, Metronidazole tablets or capsules Referrals: Ken Devlin MD [Physician] - 12/19/16 8:30 am (Please check in at 8: 15 a.m.) - Discharge Summary/Plan Comment DC Time >30 min.: No Discharge Summary/Plan Comment: Discharge Diagnoses: Mesenteric cystic lymphangioma flare Leukocytosis abdominal pain Bart was admitted and treated with Cipro and Flagyl. He was given Toradol for pain and place on bowel rest. This morning he is feeling much better and would like to eat. He is requesting discharge if he is able to tolerate his diet. He has no worsening of pain with eating and would like to be discharged. Leukocytosis improved today to 12,000. Afebrile. He is passing gas and had a BM this morning. He was advised to keep with FL diet for next couple days then slowly advance to GI soft low fiber. We will continue Cipro and Flagy for 2 weeks total. He is to follow with PCP and has already arranged follow up with his [facility] specialist next month. He is to return to ED or clinic if concerns should arise. - General Info Date of Service: 12/12/16 Admission Dx/Problem (Free Text: abdominal pain Subjective Update: Feeling better this morning, pain is minimal requesting diet and discharge. Functional Status: Reports: Pain Controlled, Tolerating Diet, Ambulating, Urinating - Review of Systems General: Reports: No Symptoms. Denies: Fever Pulmonary: Reports: No Symptoms. Denies: Shortness of Breath Cardiovascular: Reports: No Symptoms. Denies: Chest Pain Gastrointestinal: Reports: No Symptoms, Flatus. Denies: Abdominal Pain, Constipation, Diarrhea, Nausea, Vomiting - Patient Data Vitals - Most Recent: Last Vital Signs Temp 98.7 F 12/12/16 08:00 Pulse 86 12/12/16 08:00 Resp 19 12/12/16 08:00 BP 110/56 L 12/12/16 08:00 Pulse Ox 97 12/12/16 08:00 Weight - Most Recent: 77.8 kg I&O - Last 24 hours: Intake & Output 12/11/16 12/12/16 12/12/16 22:59 06:59 14:59 Intake Total 300 1300 1000 Output Total 380 Balance 624 [id number] Lab Results - Last 24 hrs: Laboratory Results - last 24 hr 12/12/16 12/12/16 Range/Units 04:58 04:58 WBC 12.57 H (4.0-11.0) K/uL RBC 4.28 L (4.50-5.90) M/uL Hgb 12.2 L (13.0-17.0) g/dL Hct 37.1 L (38.0-50.0) % MCV 86.7 (80.0-98.0) fL MCH 28.5 (27.0-32.0) pg MCHC 32.9 (31.0-37.0) g/dL RDW Std Deviation 44.3 (28.0-62.0) fl RDW Coeff of [place] 14 (11.0-15.0) % Plt Count 286 (150-400) K/uL MPV 9.90 (7.40-12.00) fL Neut % (Auto) 73.7 (48.0-80.0) % Lymph % (Auto) 14.0 L (16.0-40.0) % Hill % (Auto) 10.0 (0.0-15.0) % Eos % (Auto) 2.1 (0.0-7.0) % Baso % (Auto) 0.2 (0.0-1.5) % Neut # (Auto) 9.3 H (1.4-5.7) K/uL Lymph # (Auto) 1.8 (0.6-2.4) K/uL Hill # (Auto) 1.3 H (0.0-0.8) K/uL Eos # (Auto) 0.3 (0.0-0.7) K/uL Baso # (Auto) 0.0 (0.0-0.1) K/uL Nucleated RBC % 0.0 /100WBC Nucleated RBCs # 0 K/uL Sodium 140 (136-146) mmol/L Potassium 3.9 (3.5-5.1) mmol/L Chloride 110 (98-110) mmol/L Carbon Dioxide 24 (21-31) mmol/L BUN 13 (6.0-23.0) mg/dL Creatinine 0.8 (0.6-1.5) mg/dL Est Cr Clr Drug Dosing 151.10 mL/min Estimated GFR (MDRD) > 60.0 ml/min Glucose 143 H (60-110) mg/dL Calcium 7.8 L (8.8-10.8) mg/dL Med Orders - Current: Current Medications Hydromorphone HCl (Dilaudid) 0.5 mg IVPUSH Q3H PRN PRN Reason: Pain Ciprofloxacin/Dextrose 400 mg/ (Premix) 200 mls @ 200 mls/hr IV Q12H [facility] Last Admin: 12/12/16 04:01 Dose: 200 mls/hr Metronidazole 500 mg/ Premix 100 mls @ 100 mls/hr IV Q8H DIONICIO Last Admin: 12/12/16 10:18 Dose: 100 mls/hr Sodium Chloride (Normal Saline) 1,000 mls @ 125 mls/hr IV ASDIRECTED DIONICIO Last Admin: 12/12/16 10:22 Dose: 125 mls/hr Ketorolac Tromethamine (Toradol) 30 mg IVPUSH Q8H PRN PRN Reason: Pain Last Admin: 12/12/16 00:26 Dose: 30 mg Sodium Chloride (Saline Flush) 10 ml FLUSH ASDIRECTED PRN PRN Reason: Keep Vein Open Last Admin: 12/11/16 14:31 Dose: 10 ml Sodium Chloride (Saline Flush) 2.5 ml FLUSH ASDIRECTED PRN PRN Reason: Keep Vein Open Last Admin: 12/11/16 14:32 Dose: 2.5 ml Discontinued Medications Hyoscyamine (Hyosyne) 0.125 mg PO ONETIME ONE Stop: 12/11/16 15:24 Last Admin: 12/11/16 16:08 Dose: 0.125 ml Hyoscyamine (Hyomax-Sl) 0.125 mg PO ONETIME ONE Stop: 12/11/16 16:16 Last Admin: 12/11/16 16:08 Dose: 0.125 mg Sodium Chloride (Normal Saline) 1,000 mls @ 999 mls/hr IV STAT ONE Stop: 12/11/16 14:18 Last Admin: 12/11/16 14:31 Dose: 999 mls/hr Sodium Chloride (Normal Saline) 1,000 mls @ 999 mls/hr IV STAT ONE Stop: 12/11/16 16:22 Last Admin: 12/11/16 16:08 Dose: 999 mls/hr Metronidazole 500 mg/ Premix 100 mls @ 100 mls/hr IV ONETIME ONE Stop: 12/11/16 17:53 Last Admin: 12/11/16 17:08 Dose: 100 mls/hr Ketorolac Tromethamine (Toradol) 30 mg IVPUSH ONETIME ONE Stop: 12/11/16 15:23 Last Admin: 12/11/16 16:22 Dose: 30 mg Ketorolac Tromethamine (Toradol) 30 mg IVPUSH Q8H PRN PRN Reason: Pain Stop: 12/16/16 18:22 Morphine Sulfate (Morphine) 2 mg IV ONETIME ONE Stop: 12/11/16 16:49 Last Admin: 12/11/16 17:09 Dose: 2 mg Pantoprazole Sodium (Protonix Iv) 80 mg IVPUSH .BOLUS ONE Stop: 12/11/16 13:10 Last Admin: 12/11/16 14:31 Dose: 80 mg - Exam Quality Assessment: Reports: Supplemental Oxygen General: Reports: Alert, Cooperative, No Acute Distress Neck: Reports: Supple Cardiovascular: Reports: Regular Rate, Regular Rhythm GI/Abdominal Exam: Normal Bowel Sounds, Soft, No Organomegaly, No Distention, No Abnormal Bruit, No Mass, Pelvis Stable, Tender (scant tenderness to LLQ) Extremities: Normal Inspection, Normal Range of Motion, Non-Tender, No Pedal Edema, Normal Capillary Refill Skin: Reports: Warm, Dry, Intact Neurological: Reports: No New Focal Deficit *Q Meaningful Use (DIS) - VTE *Q VTE Criteria *Q: - Stroke *Q Stroke Criteria *Q: - AMI *Q AMI Criteria *Q:
[2016-12-12 11:59] VITALS: BP 114/58
== END 2016-12-12 12:20 | disposition home or self-care (01) ==
LOC: MW.ED 12:41 → MW.MS 17:09
PROVIDERS: ADMIT Internal Medicine; ATTEND Internal Medicine
DX: D18.1 Lymphangioma, any site (principal); R10.9 Unspecified abdominal pain; D72.829 Elevated white blood cell count, unspecified; F90.9 Attention-deficit hyperactivity disorder, unspecified type; J45.990 Exercise induced bronchospasm; K58.9 Irritable bowel syndrome, unspecified; Z91.041 Radiographic dye allergy status; Z79.899 Other long term (current) drug therapy; Z87.440 Personal history of urinary (tract) infections; Z90.89 Acquired absence of other organs
CPT/HCPCS: 36415; 74176; 80048; 80053; 81001; 82150; 83690; 85025; 96361; 96365; 96375; 99284; A9270; C9113; J0744; J1885; J2270; J7040; 96366; 96367; 96374; 96376; 99283; G0378

== ENCOUNTER 2017-04-07 13:49 | Emergency (ER) | payer OTHER ==
[2017-04-07] MEDS ORDERED: Ketorolac 60 MG/2 ML SDV IM ONE (14:08)
[2017-04-07] MEDS ORDERED: Acetaminophen/HYDROcodone 325-10 MG Tab PO ONE (14:08)
--- NOTE | 2017-04-07 14:11 | EDM.PDOC ---
ED HPI GENERAL MEDICAL PROBLEM - General Chief Complaint: Back Pain or Injury Stated Complaint: BACK PAIN Time Seen by Provider: 04/07/17 14:06 - History of Present Illness INITIAL COMMENTS - FREE TEXT/NARRATIVE: HISTORY AND PHYSICAL: History of present illness: Patient is a 26-year-old white male presents concern of low back pain he states he was lifting weights in the form of squatting and felt a little pop in his right lower back and had significant pain since he denies numbness weakness incontinence or retention of bowel or bladder denies other concern he states that he did recently get back into lifting Review of systems: As per history of present illness and below otherwise all systems reviewed and negative. Past medical history: As per history of present illness and as reviewed below otherwise noncontributory. Surgical history: As per history of present illness and as reviewed below otherwise noncontributory. Social history: No reported history of drug or alcohol abuse. Family history: As per history of present illness and as reviewed below otherwise noncontributory. Physical exam: HEENT: Atraumatic, normocephalic, pupils reactive, negative for conjunctival pallor or scleral icterus, mucous membranes moist, throat clear, neck supple, nontender, trachea midline. Lungs: Clear to auscultation, breath sounds equal bilaterally, chest nontender. Heart: S1S2, regular, negative for clicks, rubs, or JVD. Abdomen: Soft, nondistended, nontender. Negative for masses or hepatosplenomegaly. Negative for costovertebral tenderness. Pelvis: Stable nontender. Genitourinary: Deferred. Rectal: Deferred. Extremities: Atraumatic, negative for cords or calf pain. Neurovascular unremarkable. Neuro: Awake, alert, oriented. Cranial nerves II through XII unremarkable. Cerebellum unremarkable. Motor and sensory unremarkable throughout. Exam nonfocal. Back: Patient is some paravertebral tenderness of level lumbar spine no vertebral body or point tenderness motor and sensory unremarkable patient is able stand on his toes and back feels deep tendon reflexes are normal Diagnostics: X-ray lumbar spine Therapeutics: Toradol 60 mg IM hydrocodone 10 mg by mouth Impression: #1 acute lumbar strain Definitive disposition and diagnosis as appropriate pending reevaluation and review of above. low back Pain Score (Numeric/FACES): 8 - Related Data Allergies Allergy/AdvReac Type Severity Reaction Status Date / Time IV Dye Allergy Vomiting Uncoded 04/07/17 13:55 Home Meds: Home Meds Albuterol Sulfate [Proventil Hfa] 6.7 gm IH ASDIRECTED 04/07/17 [History] Past Medical History - Past Health History Medical/Surgical History: Denies Medical/Surgical History Cardiovascular History: Reports: None Respiratory History: Reports: Asthma Other Respiratory History: childhood asthma, sports induced asthma Gastrointestinal History: Reports: Inflammatory Bowel Disease, Other (See Below) Other Gastrointestinal History: Mesenteric cystic lymphangioma Genitourinary History: Reports: None Other Genitourinary History: 1x UTI Other Musculoskeletal History: right hand and wrist fracture Psychiatric History: Reports: ADHD, Anxiety, Panic Attack Endocrine/Metabolic History: Reports: None Dermatologic History: Reports: None - Infectious Disease History Infectious Disease History: Reports: Chicken Pox - Past Surgical History HEENT Surgical History: Reports: Adenoidectomy, Tonsillectomy Other HEENT Surgeries/Procedures: adenoidectomy Respiratory Surgical History: Reports: None GI Surgical History: Reports: Other (See Below) Male Surgical History: Reports: None Endocrine Surgical History: Reports: None Musculoskeletal Surgical History: Reports: None Social & Family History - Family History Family Medical History: Noncontributory - Tobacco Use Smoking Status *Q: Never Smoker Used Tobacco, but Quit: No Second Hand Smoke Exposure: Yes - Caffeine Use Caffeine Use: Reports: Coffee - Alcohol Use Days Per Week of Alcohol Use: 1 Number of Drinks Per Day: 1 Total Drinks Per Week: 1 - Recreational Drug Use Recreational Drug Use: No Drug Use in Last 12 Months: No Recreational Drug Type: Reports: Marijuana/Hashish Recreational Drug Use Frequency: Not Used In Over 6 Months Recreational Drug Last Use: 4 ED ROS GENERAL - Review of Systems Review Of Systems: ROS reveals no pertinent complaints other than HPI. ED EXAM, GENERAL - Physical Exam Exam: See Below (See dictation) Course - Vital Signs Last Recorded V/S: Last Vital Signs Temp 37.4 C 04/07/17 13:49 Pulse 94 04/07/17 15:53 Resp 18 04/07/17 15:53 BP 110/59 L 04/07/17 15:53 Pulse Ox 95 04/07/17 15:53 - Orders/Labs/Meds Orders: Active Orders 24 hr Category Date Time Status Lumbar Spine 2 or 3V [CR] Stat Exams 04/07/17 14:08 Taken Meds: Medications Discontinued Medications Generic Name Dose Route Start Last Admin Trade Name Alina PRN Reason Stop Dose Admin Hydrocodone Bitart/Acetaminophen 1 tab 04/07/17 14:08 04/07/17 14:26 [place] 325-10 Mg PO 04/07/17 14:09 1 tab ONETIME ONE Administration Ketorolac Tromethamine 60 mg 04/07/17 14:08 04/07/17 14:22 Toradol IM 04/07/17 14:09 60 mg ONETIME ONE Administration Ondansetron HCl 4 mg 04/07/17 14:12 04/07/17 14:22 Zofran Odt PO 04/07/17 14:13 4 mg ONETIME ONE Administration Departure - Departure Time of Disposition: 16:27 Disposition: Home, Self-Care 01 Condition: Good Clinical Impression: Lumbar strain - Discharge Information Referrals: PCP,None [Primary Care Provider] - Forms: ED Department Discharge Additional Instructions: The following information is given to patients seen in the emergency department who are being discharged to home. This information is to outline your options for follow-up care. We provide all patients seen in our emergency department with a follow-up referral. The need for follow-up, as well as the timing and circumstances, are variable depending upon the specifics of your emergency department visit. If you don't have a primary care physician on staff, we will provide you with a referral. We always advise you to contact your personal physician following an emergency department visit to inform them of the circumstance of the visit and for follow-up with them and/or the need for any referrals to a consulting specialist. The emergency department will also refer you to a specialist when appropriate. This referral assures that you have the opportunity for followup care with a specialist. All of these measure are taken in an effort to provide you with optimal care, which includes your followup. Under all circumstances we always encourage you to contact your private physician who remains a resource for coordinating your care. When calling for followup care, please make the office aware that this follow-up is from your recent emergency room visit. If for any reason you are refused follow-up, please contact the [facility] emergency department at and asked to speak to the emergency department charge nurse. [facility] Professional [address], [address] [place] [address] Zofran Flexeril hydrocodone as prescribed: Schedule routine appointment with primary care and/or orthopedic clinic above return as needed as discussed - My Orders Last 24 Hours: My Active Orders 04/07/17 14:08 Lumbar Spine 2 or 3V [CR] Stat - Assessment/Plan Last 24 Hours: My Active Orders 04/07/17 14:08 Lumbar Spine 2 or 3V [CR] Stat
[2017-04-07] MEDS ORDERED: Ondansetron 4 MG Tab.DIS PO ONE (14:12)
[2017-04-07 15:53] VITALS: BP 110/59
--- NOTE | 2017-04-09 14:36 | CR ---
EXAM DATE: 04/07/17 PATIENT'S AGE: 26 Patient: DAV MURRIETA Facility: [place], [place] Site . Site : 1988 Study: XRay Spine Lumbar [id number]/[id number] 3:11:05 PM Ordering Physician: Michael Cervantes Final Report: INDICATION: Back pain. TECHNIQUE: Three views. FINDINGS: There are 5 non rib-bearing lumbar type vertebral bodies present. Vertebral body heights and alignment are well maintained. Disc heights well maintained. No spondylolisthesis identified. Bone density normal. IMPRESSION: No acute bony abnormality identified. Dictated by Migel Bennett MD @ Apr 07 2017 3:42PM (Electronic Signature) Report Signed by Proxy. JOSR
== END 2017-04-07 16:35 | disposition home or self-care (01) ==
LOC: MW.ED 13:49
DX: S39.012A Strain of muscle, fascia and tendon of lower back, initial encounter (principal); Z91.041 Radiographic dye allergy status; X50.0XXA Overexertion from strenuous movement or load, initial encounter
CPT/HCPCS: 72100; 96372; 99283; A9270; J1885

== ENCOUNTER 2017-05-03 12:29 | Observation (INO) | payer OTHER, BC ==
[2017-05-03] MEDS ORDERED: Ondansetron 4 MG/2 ML SDV IVPUSH ONE (12:49)
[2017-05-03] MEDS ORDERED: Ketorolac 30 MG/ML SDV IVPUSH ONE (12:49)
--- NOTE | 2017-05-03 12:52 | EDM.PDOC ---
ED HPI GENERAL MEDICAL PROBLEM - General Chief Complaint: Gastrointestinal Problem Stated Complaint: VOMITTING AND BACK PAIN Time Seen by Provider: 05/03/17 12:30 Source of Information: Reports: Patient History Limitations: Reports: No Limitations - History of Present Illness INITIAL COMMENTS - FREE TEXT/NARRATIVE: HISTORY AND PHYSICAL: History of present illness: Patient is a 26-year-old male who presents to the emergency room with complaints of abdominal pain 3 weeks. He states that he has had intermittent abdominal pain to the mid abdomen which comes and goes over the past 3 weeks that has been progressively worse today. Has had 3 episodes of vomiting. Denies any fever, chills, chest pain, shortness of breath, diarrhea/ constipation. Has not received the influenza vaccine. 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 He states that this was benign 6 inches of bowel removed, and did not require any radiation or further treatment. Was last admitted to the hospital on 12/11/2016 for abdominal pain/ pain management. PMH: Asthma, inflammatory bowel disease, mesenteric cystic lymphangioma, UTI, anxiety, ADHD. Review of systems: As per history of present illness and below otherwise all systems reviewed and negative. Past medical history: As per history of present illness and as reviewed below otherwise noncontributory. Surgical history: As per history of present illness and as reviewed below otherwise noncontributory. Social history: No reported history of drug or alcohol abuse. Family history: As per history of present illness and as reviewed below otherwise noncontributory. Physical exam: General: Well-developed and well-nourished 26-year-old male. Alert and oriented. HEENT: Atraumatic, normocephalic, pupils reactive, negative for conjunctival pallor or scleral icterus, mucous membranes moist, throat clear, neck supple, nontender, trachea midline. Lungs: Clear to auscultation, breath sounds equal bilaterally, chest nontender. Heart: S1S2, regular rate and rhythm Abdomen: Soft, nondistended, diffuse tenderness in all 4 quadrants. Negative for masses or hepatosplenomegaly. Mild costovertebral tenderness bilaterally. Large midline verticle healed scar to mid abdomen. Pelvis: Stable nontender. Genitourinary: Deferred. Rectal: Deferred. Extremities: Atraumatic, negative for cords or calf pain. Neurovascular unremarkable. Neuro: Awake, alert, oriented. Cranial nerves II through XII unremarkable. Cerebellum unremarkable. Motor and sensory unremarkable throughout. Exam nonfocal. WBC 21.4, showing dilated loops of small bowel likely a mechanical small bowel obstruction with transition point at the anastomosis. 1400- Dr Wilkerson was consulted on this patient. 1440- Dr Wilkerson here to evaluate patient. Patient is currently pain free. Observation admission for further studies, per DR WILKERSON Diagnostics: CBC, CMP, amylase, lipase, CT abdomen without (allergy to IVP), UA Therapeutics: IV fluid, Zofran, Toradol, morphine Impression: 1. Abdominal pain 2. Small Bowel Obstruction Plan: Observation admission. Definitive disposition and diagnosis as appropriate pending reevaluation and review of above. Duration: Week(s): Location: Reports: Abdomen Left Abdominal Pain Score (Numeric/FACES): 7 - Related Data Allergies Allergy/AdvReac Type Severity Reaction Status Date / Time IV Dye Allergy Vomiting Uncoded 05/03/17 12:47 Home Meds: Home Meds Albuterol Sulfate [Proventil Hfa] 6.7 gm IH ASDIRECTED 04/07/17 [History] Amphetamine/Dextroamphetamine [Adderall] 20 mg PO BID 05/03/17 [History] Past Medical History - Past Health History Medical/Surgical History: Denies Medical/Surgical History Cardiovascular History: Reports: None Respiratory History: Reports: Asthma Other Respiratory History: childhood asthma, sports induced asthma Gastrointestinal History: Reports: Inflammatory Bowel Disease, Other (See Below) Other Gastrointestinal History: Mesenteric cystic lymphangioma Genitourinary History: Reports: None Other Genitourinary History: 1x UTI Other Musculoskeletal History: right hand and wrist fracture Psychiatric History: Reports: ADHD, Anxiety, Panic Attack Endocrine/Metabolic History: Reports: None Dermatologic History: Reports: None - Infectious Disease History Infectious Disease History: Reports: Chicken Pox - Past Surgical History HEENT Surgical History: Reports: Adenoidectomy, Tonsillectomy Other HEENT Surgeries/Procedures: adenoidectomy Respiratory Surgical History: Reports: None GI Surgical History: Reports: Other (See Below) Male Surgical History: Reports: None Endocrine Surgical History: Reports: None Musculoskeletal Surgical History: Reports: None Social & Family History - Family History Family Medical History: Noncontributory - Tobacco Use Smoking Status *Q: Never Smoker Used Tobacco, but Quit: No Second Hand Smoke Exposure: Yes - Caffeine Use Caffeine Use: Reports: Coffee - Alcohol Use Days Per Week of Alcohol Use: 1 Number of Drinks Per Day: 1 Total Drinks Per Week: 1 - Recreational Drug Use Recreational Drug Use: No Drug Use in Last 12 Months: No Recreational Drug Type: Reports: Marijuana/Hashish Recreational Drug Use Frequency: Not Used In Over 6 Months Recreational Drug Last Use: 4 ED ROS GENERAL - Review of Systems Review Of Systems: ROS reveals no pertinent complaints other than HPI. ED EXAM, GI/ABD - Physical Exam Exam: See Below (See dictation) Course - Vital Signs Last Recorded V/S: Last Vital Signs Temp 96.8 F 05/03/17 12:39 Pulse 91 05/03/17 12:39 Resp 20 05/03/17 12:39 BP 138/61 05/03/17 12:39 Pulse Ox 100 05/03/17 12:39 - Orders/Labs/Meds Orders: Active Orders 24 hr Category Date Time Status Admission Status [Patient Status] [ADT] Stat ADT 05/03/17 15:28 Ordered CULTURE BLOOD [BC] Stat Lab 05/03/17 14:43 Received CULTURE BLOOD [BC] Stat Lab 05/03/17 15:04 Results Sodium Chloride 0.9% [Normal Saline] 500 ml Med 05/03/17 13:15 Active IV .BOLUS Sodium Chloride 0.9% [Normal Saline] 500 ml Med 05/03/17 14:30 Active IV .BOLUS Blood Culture x2 Reflex Set [OM.PC] Stat Oth 05/03/17 14:24 Ordered Medication Orders Sodium Chloride (Normal Saline) 500 mls @ 999 mls/hr IV .BOLUS DIONICIO Last Admin: 05/03/17 13:16 Dose: 999 mls/hr Sodium Chloride (Normal Saline) 500 mls @ 10 mls/hr IV .BOLUS D[facility]ICIO Last Admin: 05/03/17 14:57 Dose: 10 mls/hr Labs: Laboratory Tests 05/03/17 05/03/17 05/03/17 Range/Units 13:00 13:00 13:34 WBC 21.43 H (4.0-11.0) K/uL RBC 5.80 (4.50-5.90) M/uL Hgb 16.3 (13.0-17.0) g/dL Hct 49.9 (38.0-50.0) % MCV 86.0 (80.0-98.0) fL MCH 28.1 (27.0-32.0) pg MCHC 32.7 (31.0-37.0) g/dL RDW Std Deviation 43.5 (28.0-62.0) fl RDW Coeff of [place] 14 (11.0-15.0) % Plt Count 542 H (150-400) K/uL MPV 9.70 (7.40-12.00) fL Add Manual Diff YES Neutrophils % (Manual) 79 (48.0-80.0) % Band Neutrophils % 1 % Lymphocytes % (Manual) 15 L (16.0-40.0) % Monocytes % (Manual) 2 (0.0-15.0) % Eosinophils % (Manual) 3 (0.0-7.0) % Nucleated RBC % 0.0 /100WBC Absolute Seg Neuts 16.9 H (1.4-5.7) Band Neutrophils # 0.2 Lymphocytes # (Manual) 3.2 H (0.6-2.4) Monocytes # (Manual) 0.4 (0.0-0.8) Eosinophils # (Manual) 0.6 (0.0-0.7) Nucleated RBCs # 0 K/uL Lactate (0.20-2.00) mmol/L Sodium 142 (136-146) mmol/L Potassium 4.6 (3.5-5.1) mmol/L Chloride 101 (98-110) mmol/L Carbon Dioxide 28 (21-31) mmol/L BUN 15 (6.0-23.0) mg/dL Creatinine 1.2 (0.6-1.5) mg/dL Est Cr Clr Drug Dosing 100.59 mL/min Estimated GFR (MDRD) > 60.0 ml/min Glucose 97 (60-110) mg/dL Calcium 9.7 (8.8-10.8) mg/dL Total Bilirubin 0.3 (0.1-1.5) mg/dL AST 28 (5-40) IU/L ALT 32 (8-54) IU/L Alkaline Phosphatase 96 (40-150) Total Protein 8.7 H (6.0-8.0) g/dL Albumin 4.5 (3.5-5.0) g/dL Globulin 4.2 H (2.0-3.5) g/dL Albumin/Globulin Ratio 1.1 L (1.3-2.8) Amylase 51 (10-90) U/L Lipase 14 (7-80) U/L Urine Color DARK YELLOW Urine Appearance SLT CLOUDY Urine pH 7.5 (5.0-8.0) Ur Specific [place] 1.020 (1.001-1.035) Urine Protein TRACE (NEGATIVE) mg/dL Urine Glucose (UA) NEGATIVE (NEGATIVE) mg/dL Urine Ketones TRACE H (NEGATIVE) mg/dL Urine Occult Blood NEGATIVE (NEGATIVE) Urine Nitrite NEGATIVE (NEGATIVE) Urine Bilirubin NEGATIVE (NEGATIVE) Urine Urobilinogen 0.2 (<2.0) EU/dL Ur Leukocyte Esterase NEGATIVE (NEGATIVE) Urine RBC 0-2 (0-2/HPF) Urine WBC 0-2 (0-5/HPF) Ur Epithelial Cells RARE (NONE-FEW) Amorphous Sediment MODERATE (NEGATIVE) Urine Bacteria FEW (NEGATIVE) Urine Mucus LIGHT (NONE-MOD) 05/03/17 Range/Units 15:04 WBC (4.0-11.0) K/uL RBC (4.50-5.90) M/uL Hgb (13.0-17.0) g/dL Hct (38.0-50.0) % MCV (80.0-98.0) fL MCH (27.0-32.0) pg MCHC (31.0-37.0) g/dL RDW Std Deviation (28.0-62.0) fl RDW Coeff of [place] (11.0-15.0) % Plt Count (150-400) K/uL MPV (7.40-12.00) fL Add Manual Diff Neutrophils % (Manual) (48.0-80.0) % Band Neutrophils % % Lymphocytes % (Manual) (16.0-40.0) % Monocytes % (Manual) (0.0-15.0) % Eosinophils % (Manual) (0.0-7.0) % Nucleated RBC % /100WBC Absolute Seg Neuts (1.4-5.7) Band Neutrophils # Lymphocytes # (Manual) (0.6-2.4) Monocytes # (Manual) (0.0-0.8) Eosinophils # (Manual) (0.0-0.7) Nucleated RBCs # K/uL Lactate 1.0 (0.20-2.00) mmol/L Sodium (136-146) mmol/L Potassium (3.5-5.1) mmol/L Chloride (98-110) mmol/L Carbon Dioxide (21-31) mmol/L BUN (6.0-23.0) mg/dL Creatinine (0.6-1.5) mg/dL Est Cr Clr Drug Dosing mL/min Estimated GFR (MDRD) ml/min Glucose (60-110) mg/dL Calcium (8.8-10.8) mg/dL Total Bilirubin (0.1-1.5) mg/dL AST (5-40) IU/L ALT (8-54) IU/L Alkaline Phosphatase (40-150) Total Protein (6.0-8.0) g/dL Albumin (3.5-5.0) g/dL Globulin (2.0-3.5) g/dL Albumin/Globulin Ratio (1.3-2.8) Amylase (10-90) U/L Lipase (7-80) U/L Urine Color Urine Appearance Urine pH (5.0-8.0) Ur Specific [place] (1.001-1.035) Urine Protein (NEGATIVE) mg/dL Urine Glucose (UA) (NEGATIVE) mg/dL Urine Ketones (NEGATIVE) mg/dL Urine Occult Blood (NEGATIVE) Urine Nitrite (NEGATIVE) Urine Bilirubin (NEGATIVE) Urine Urobilinogen (<2.0) EU/dL Ur Leukocyte Esterase (NEGATIVE) Urine RBC (0-2/HPF) Urine WBC (0-5/HPF) Ur Epithelial Cells (NONE-FEW) Amorphous Sediment (NEGATIVE) Urine Bacteria (NEGATIVE) Urine Mucus (NONE-MOD) Meds: Medications Generic Name Dose Route Start Last Admin Trade Name Freq PRN Reason Stop Dose Admin Sodium Chloride 500 mls @ 999 mls/hr 05/03/17 13:15 05/03/17 13:16 Normal Saline IV 999 mls/hr .BOLUS DIONICIO Administration Sodium Chloride 500 mls @ 10 mls/hr 05/03/17 14:30 05/03/17 14:57 Normal Saline IV 10 mls/hr .BOLUS DIONICIO Administration Discontinued Medications Generic Name Dose Route Start Last Admin Trade Name Freq PRN Reason Stop Dose Admin Sodium Chloride 500 mls @ 999 mls/hr 05/03/17 13:00 Normal Saline IV STAT DIONIICO Piperacillin Sod/Tazobactam 50 mls @ 100 mls/hr 05/03/17 14:24 05/03/17 14:34 Sod 3.375 gm/ Sodium Chloride IV 05/03/17 14:53 100 mls/hr ONETIME ONE Administration Ketorolac Tromethamine 30 mg 05/03/17 12:49 05/03/17 13:08 Toradol IVPUSH 05/03/17 12:50 30 mg ONETIME ONE Administration Morphine Sulfate 2 mg 05/03/17 13:40 05/03/17 13:46 Morphine IVPUSH 05/03/17 13:41 2 mg ONETIME ONE Administration Ondansetron HCl 4 mg 05/03/17 12:49 05/03/17 13:08 Zofran IVPUSH 05/03/17 12:50 4 mg ONETIME ONE Administration Departure - Departure Time of Disposition: 15:30 Disposition: Refer to Observation Clinical Impression: Small bowel obstruction, Small bowel obstruction - Discharge Information Referrals: PCP,None [Primary Care Provider] - Forms: ED Department Discharge - My Orders Last 24 Hours: My Active Orders 05/03/17 13:15 Sodium Chloride 0.9% [Normal Saline] 500 ml IV .BOLUS 05/03/17 14:24 Blood Culture x2 Reflex Set [OM.PC] Stat 05/03/17 14:30 Sodium Chloride 0.9% [Normal Saline] 500 ml IV .BOLUS 05/03/17 14:43 CULTURE BLOOD [BC] Stat 05/03/17 15:04 CULTURE BLOOD [BC] Stat 05/03/17 15:28 Admission Status [Patient Status] [ADT] Stat - Assessment/Plan Last 24 Hours: My Active Orders 05/03/17 13:15 Sodium Chloride 0.9% [Normal Saline] 500 ml IV .BOLUS 05/03/17 14:24 Blood Culture x2 Reflex Set [OM.PC] Stat 05/03/17 14:30 Sodium Chloride 0.9% [Normal Saline] 500 ml IV .BOLUS 05/03/17 14:43 CULTURE BLOOD [BC] Stat 05/03/17 15:04 CULTURE BLOOD [BC] Stat 05/03/17 15:28 Admission Status [Patient Status] [ADT] Stat
[2017-05-03] MEDS ORDERED: Sodium Chloride 0.9% 500 ML IV SCH ×2 (13:00→13:15)
[2017-05-03] MEDS ORDERED: Morphine 2 MG/ML Syringe IVPUSH ONE (13:40)
[2017-05-03 13:43] LABS: CHLORIDE,CL 101 mmol/L (98-110); SODIUM,NA 142 mmol/L (136-146)
--- NOTE | 2017-05-03 13:52 | CT ---
CT of the abdomen and pelvis without contrast. HISTORY: Pain TECHNIQUE: Axial CT images were obtained of the abdomen and pelvis without contrast. Coronal and sagi ttal reconstructions obtained. FINDINGS: The lung bases are clear, no pleural effusion. The liver, spleen, adrenal glands, and pancreas appear unremarkable for noncontrast examination. The gallbladder appears normal. There is no bulky retroperitoneal lymphadenopathy. There are a few borde rline left mesenteric lymph nodes again noted. No abdominal ascites. There are no calcifications noted within the kidneys or along the courses of the ureters bilaterally. Dilated loops of small bowel are noted measuring up to 3.4 cm. The transition point appears to be at the anastomosis sutures noted within the right lower quadrant. Thickened loop of small bowel noted wi thin the left flank again noted, not significantly changed from the prior CT. The appendix appears no rmal. There is no bulky pelvic lymphadenopathy. No free fluid. No free air. The urinary bladder appea rs normal. The visualized osseous structures appear normal. IMPRESSION: 1. Dilated loops of small bowel likely representing a mechanical small bowel obstruction with transit ion point at the anastomosis sutures within the right lower quadrant.
[2017-05-03] MEDS ORDERED: Piperacillin/Tazobactam 3.375 GM in Sodium Chloride 0.9% 50 ML IV ONE (14:24)
[2017-05-03] MEDS: Sodium Chloride 0.9% 500 ML IV SCH ×2 (14:33→14:57)
--- NOTE | 2017-05-03 16:04 | PCM.SN ---
- Free Text/Narrative Note: pt seen, chart reviewed; pt currently has no pain, no n/v, and is passing gas, and have well formed BM yesterday; situation has been going on X 3 - 4 wks; will repeat ct w po contrast, gastrograffin; and follow with serail abd exam, and ngt decompression
[2017-05-03] MEDS ORDERED: Ondansetron 4 MG/2 ML SDV IVPUSH PRN (16:16)
[2017-05-03] MEDS ORDERED: Lactated Ringers 1,000 ML IV SCH (16:30)
[2017-05-03] MEDS ORDERED: Benzocaine 20% Topical Spray UD MUCMEM ONE (17:45)
[2017-05-03] MEDS ORDERED: Pantoprazole 40 MG Vial IVPUSH SCH (18:00)
[2017-05-03] MEDS ORDERED: Phenol 1.4% Oral Spray 177 ML Bottle MUCMEM PRN (19:03)
[2017-05-03] MEDS: Ondansetron 4 MG/2 ML SDV IVPUSH PRN (19:28)
[2017-05-03] MEDS: Piperacillin/Tazobactam 3.375 GM in Sodium Chloride 0.9% 50 ML IV SCH (21:38)
[2017-05-04] MEDS: Ondansetron 4 MG/2 ML SDV IVPUSH PRN ×2 (01:53→06:05)
[2017-05-04] MEDS: Piperacillin/Tazobactam 3.375 GM in Sodium Chloride 0.9% 50 ML IV SCH ×2 (02:42→08:27)
[2017-05-04 05:48] LABS: CHLORIDE,CL 106 mmol/L (98-110); SODIUM,NA 144 mmol/L (136-146)
--- NOTE | 2017-05-04 07:45 | HP ---
DATE OF : 1990 PRIMARY CARE PHYSICIAN: None PCP Consult is from the emergency room. CONCERNING QUESTION: Possible bowel obstruction. HISTORY OF PRESENT ILLNESS: The patient is a 26-year-old slim built gentleman complaining of 3-4 week history of comes and goes nausea, vomiting, and abdominal pain, and the patient remarked that the pain is a comes and goes type and sometimes will not happen for a few days and sometimes happening a couple times a day. At this time the pain gets worse, and the patient seeks help in the emergency room. CAT scan suggests it is a dilated loop of small bowel right at the anastomosis, and the small bowel anastomosis suggests possible mechanical bowel obstruction. Surgery was then consulted. Currently, the patient has 2 mg of IV morphine, and the patient was absolutely pain free. No nausea or vomiting, and the patient, in fact, is comfortable and denied pain whatsoever. The patient has been taking self-administrated ibuprofen whenever pain happens. The patient is passing gas, and last bowel movement was yesterday night and was a well-formed stool. The patient denied black tarry stools, denied bright red blood per rectum. ALLERGIES TO MEDICATIONS: Please refer to nursing notes for details. PAST MEDICAL HISTORY: Denied diabetes, [place], CVA, hypertension. 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 PAST SURGICAL HISTORY: Exploration by myself three years ago and then small bowel resection at [facility] and adenoids and tonsils. SOCIAL HISTORY: Denies alcohol use. FAMILY HISTORY: Noncontributory. PHYSICAL EXAMINATION: GENERAL: A very pleasant, nice, young gentleman, small built, and in no acute distress. HEENT: Normocephalic and atraumatic. Sclerae anicteric. LUNGS: Clear to auscultation. HEART: Regular rate and rhythm. ABDOMEN: Guarding. I tried my best and the patient still cannot be relaxed, but he cannot find the point of maximum tenderness by himself, and on my examination, the patient has normal bowel sounds in all four quadrants. Large well-healed midline incision. No hernia appreciated. LABORATORY DATA: White count is 21,000. CAT scan shows dilated loop of bowel and tight anastomosis with only IV contrast, no p.o. contrast. IMPRESSION: Possible bowel obstruction that has been going on for 3-4 weeks, and the pain comes and goes. Currently the patient has no pain and no nausea and passing gas and had bowel movement just 12 hours ago. The situation has been going on for close to about a month, for which put an NG tube decompression, and at the same time, we will repeat the CAT scan with p.o. contrast and using Gastrografin and repeat blood work and get hydration and put on antibiotic and reassess with serial abdominal exam. If the patient has a tight anastomosis, in addition to scar formation, the patient probably needs to have anastomosis revision, and with the patient's situation, the patient would like to have it done probably in [place] per the original surgeon. We will admit for the workup as the plan above. As always, thank you for the kind referral. ANKUSH ZALDIVAR /[id number]
[2017-05-04 09:03] VITALS: BP 136/78
--- NOTE | 2017-05-04 09:46 | PCM.DCSUM1 ---
Discharge Summary - Hospital Course Free Text/Narrative:: please see admitting h/p for details, in summary, pt presented to ED with 3 - 4 wks of n/v/abd pain; ct revealed possible sbo; pt seemed to be doing better after 2 mg iv morphine, was admitted for observation; ct was done without po contrast; the next morning; abd exam remained unchanged; little abd pain, but persistent vomitting; ct reading, tight anastomosis at previous surgical resection; wbc remained alejandra at 19. pt was offered surgery; pt after discussed family member, decided to return to previous surgeon at [place]; pt will be transferred to [place] for further treatment; at the time of transfer, pt is on ngt, hemodynamically stable. - Discharge Data Discharge Date: 05/04/17 Discharge Disposition: Home, Self-Care 01 Condition: Fair - Patient Instructions Diet: NPO Diet, Other: ngt on suction Driving: Do Not Drive Showering/Bathing: July Shower - Discharge Plan Home Medications: Home Meds Albuterol Sulfate [Proventil Hfa] 6.7 gm IH ASDIRECTED 04/07/17 [History] Amphetamine/Dextroamphetamine [Adderall] 20 mg PO BID 05/03/17 [History] Forms: ED Department Discharge Referrals: PCP,None [Primary Care Provider] - - Discharge Summary/Plan Comment DC Time >30 min.: Yes - Patient Data Vitals - Most Recent: Last Vital Signs Temp 96.6 F 05/04/17 08:00 Pulse 100 05/04/17 08:00 Resp 22 H 05/04/17 08:00 BP 136/78 05/04/17 08:00 Pulse Ox 96 05/04/17 08:00 Weight - Most Recent: 170 lb 10.205 oz I&O - Last 24 hours: Intake & Output 05/03/17 05/04/17 05/04/17 22:59 06:59 14:59 Intake Total 50 1250 Output Total 1020 Balance 50 230 Lab Results - Last 24 hrs: Laboratory Results - last 24 hr 05/04/17 05/04/17 Range/Units 04:49 04:49 WBC 19.80 H (4.0-11.0) K/uL RBC 5.00 (4.50-5.90) M/uL Hgb 14.0 (13.0-17.0) g/dL Hct 43.3 (38.0-50.0) % MCV 86.6 (80.0-98.0) fL MCH 28.0 (27.0-32.0) pg MCHC 32.3 (31.0-37.0) g/dL RDW Std Deviation 44.1 (28.0-62.0) fl RDW Coeff of [place] 14 (11.0-15.0) % Plt Count 460 H (150-400) K/uL MPV 9.80 (7.40-12.00) fL Add Manual Diff YES Neutrophils % (Manual) 77 (48.0-80.0) % Band Neutrophils % 7 % Lymphocytes % (Manual) 12 L (16.0-40.0) % Monocytes % (Manual) 4 (0.0-15.0) % Nucleated RBC % 0.0 /100WBC Absolute Seg Neuts 15.2 H (1.4-5.7) Band Neutrophils # 1.4 Lymphocytes # (Manual) 2.4 (0.6-2.4) Monocytes # (Manual) 0.8 (0.0-0.8) Nucleated RBCs # 0 K/uL Sodium 144 (136-146) mmol/L Potassium 4.7 (3.5-5.1) mmol/L Chloride 106 (98-110) mmol/L Carbon Dioxide 25 (21-31) mmol/L BUN 16 (6.0-23.0) mg/dL Creatinine 1.2 (0.6-1.5) mg/dL Est Cr Clr Drug Dosing 100.33 mL/min Estimated GFR (MDRD) > 60.0 ml/min Glucose 89 (60-110) mg/dL Calcium 9.0 (8.8-10.8) mg/dL Total Bilirubin 0.4 (0.1-1.5) mg/dL AST 17 (5-40) IU/L ALT 24 (8-54) IU/L Alkaline Phosphatase 80 (40-150) Total Protein 6.4 (6.0-8.0) g/dL Albumin 3.7 (3.5-5.0) g/dL Globulin 2.7 (2.0-3.5) g/dL Albumin/Globulin Ratio 1.4 (1.3-2.8) Med Orders - Current: Current Medications Sodium Chloride (Normal Saline) 500 mls @ 999 mls/hr IV .BOLUS [facility] Last Admin: 05/03/17 13:16 Dose: 999 mls/hr Sodium Chloride (Normal Saline) 500 mls @ 10 mls/hr IV .BOLUS [facility] Last Admin: 05/03/17 14:57 Dose: 10 mls/hr Lactated Ringer's (Ringers, Lactated) 1,000 mls @ 150 mls/hr IV ASDIRECTED [facility] Last Infusion: 05/04/17 02:43 Dose: Infused Piperacillin Sod/Tazobactam (Sod 3.375 gm/ Sodium Chloride) 50 mls @ 100 mls/ hr IV Q6H [facility] Last Admin: 05/04/17 08:27 Dose: 100 mls/hr Ondansetron HCl (Zofran) 4 mg IVPUSH Q6H PRN PRN Reason: Nausea/Vomiting Last Admin: 05/04/17 06:05 Dose: 4 mg Pantoprazole Sodium (Protonix Iv) 40 mg IVPUSH Q24H [facility] Last Admin: 05/03/17 18:40 Dose: 40 mg Phenol/Menthol (Chloraseptic Throat [place]) 0 ml MUCMEM Q4H PRN PRN Reason: Sore Throat Discontinued Medications Benzocaine (Hurricaine One 20%) 1 each MUCMEM ONETIME ONE Stop: 05/03/17 17:46 Last Admin: 05/03/17 18:11 Dose: 1 each Sodium Chloride (Normal Saline) 500 mls @ 999 mls/hr IV STAT [facility] Piperacillin Sod/Tazobactam (Sod 3.375 gm/ Sodium Chloride) 50 mls @ 100 mls/ hr IV ONETIME ONE Stop: 05/03/17 14:53 Last Admin: 05/03/17 14:34 Dose: 100 mls/hr Ketorolac Tromethamine (Toradol) 30 mg IVPUSH ONETIME ONE Stop: 05/03/17 12:50 Last Admin: 05/03/17 13:08 Dose: 30 mg Morphine Sulfate (Morphine) 2 mg IVPUSH ONETIME ONE Stop: 05/03/17 13:41 Last Admin: 05/03/17 13:46 Dose: 2 mg Ondansetron HCl (Zofran) 4 mg IVPUSH ONETIME ONE Stop: 05/03/17 12:50 Last Admin: 05/03/17 13:08 Dose: 4 mg Ondansetron HCl (Zofran) 4 mg IVPUSH Q8H PRN PRN Reason: Nausea/Vomiting *Q Meaningful Use (DIS) - VTE *Q VTE Criteria *Q: - Stroke *Q Stroke Criteria *Q: - AMI *Q AMI Criteria *Q:
[2017-05-04] MEDS: Morphine 2 MG/ML Syringe IVPUSH ONE ×2 (10:43→10:46)
[2017-05-04] MEDS ORDERED: Ketorolac 30 MG/ML SDV IVPUSH ONE (10:46)
--- NOTE | 2017-05-04 14:52 | CR ---
EXAM DATE: 05/03/17 PATIENT'S AGE: 26 Patient: DAV MURRIETA Facility: [place], [place] Site . Site : 1990 Study: XRay Abdomen [id number]/22/2018 7:08:28 PM Ordering Physician: Reha Phillips Final Report: HISTORY: NG tube placement. FINDINGS: A single supine radiograph of the upper abdomen demonstrates NG tube in place. The tip extends into the fundus of the stomach. The side-hole port is beyond the GE junction. Distended small bowel loops are seen measuring up to 4.4 cm. IMPRESSION: NG tube in place with the tip in the fundus of the stomach. Dictated by Sona Munguia MD @ 05/03/2017 7:21:39 PM Dictated by: Sona Munguia MD @ 05/03/2017 19:21:46 (Electronic Signature) Report Signed by Proxy. [email or web address]
--- NOTE | 2017-05-04 14:54 | PCM.SN ---
- Free Text/Narrative Note: Received a phone call from [facility] ED that the patient thought they were going to [facility]. I have talked to the patient three times. Once, [facility] refused to accept transfer. Two, I went back to tell them to find hospital in [place]; they agreed. Third, told them, I was able to discussed case with surgeon at [facility], and Dr. Ballard agreed to accept transfer. Pt and family member agreed, as documented in discharge summary. After I explain the situation, [facility] ER doc voiced understanding. I called med-surg, and nursing staff echoed the same situation, that the patient understood, and agreed to transferred to [facility].
--- NOTE | 2017-05-04 16:18 | CT ---
EXAM DATE: 05/03/17 PATIENT'S AGE: 26 Patient: DAV MURRIETA Facility: [place], [place] Site . Site : 1990 Study: CT Abdomen/Pelvis [id number]/23/2018 7:35:01 AM Ordering Physician: Rhea Phillips Final Report: HISTORY: Small bowel obstruction. Abdominal pain. History of removal of mesenteric lymphangioma. TECHNIQUE: CT abdomen and pelvis with enteric contrast. No IV contrast. COMPARISON: CT abdomen pelvis 05/03/2017. FINDINGS: Abdomen: Unenhanced liver, gallbladder, pancreas, spleen, kidneys, and adrenal glands are unremarkable. No hydronephrosis. Enteric tube with tip and side-port in the stomach. Enteric contrast is primarily in the stomach with small amount in the proximal duodenum. Multiple loops of dilated small bowel to the level of an anastomosis in the right lower quadrant, unchanged. Fecalization of small bowel contents in the loop just upstream from the anastomosis. No pneumatosis or free intraperitoneal gas. Mesenteric stranding with small amount of free fluid. Appendix is normal. Stable mesenteric lymph nodes, a few of which are upper normal size. No abdominal aortic aneurysm. Pelvis: Free fluid. No lymphadenopathy. Musculoskeletal: L4 limbus vertebra. No acute abnormality. Lower chest: Lung bases are clear. IMPRESSION: No change from 05/03/2017. Small bowel obstruction with transition at the anastomosis in the right lower quadrant. Small amount of free fluid. No fluid collection. No pneumatosis or free intraperitoneal gas. Please note that all CT scans at this facility use dose modulation, iterative reconstruction, and/or weight-based dosing when appropriate to reduce radiation dose to as low as reasonably achievable. Dictated by David Sales MD @ May 04 2017 7:59AM (Electronic Signature) Report Signed by Proxy. [facility]
== END 2017-05-04 11:50 ==
LOC: MW.ED 12:29 → MW.MS 15:28
PROVIDERS: ADMIT Surgery; ATTEND Surgery
DX: R10.9 Unspecified abdominal pain (principal); R11.2 Nausea with vomiting, unspecified; J45.990 Exercise induced bronchospasm; Z90.89 Acquired absence of other organs; Z91.041 Radiographic dye allergy status
CPT/HCPCS: 36415; 43752; 74018; 74176; 80053; 81001; 82150; 83605; 83690; 85025; 87040; 87804; 96361; 96365; 96366; 96375; 96376; 99285; A9270; C9113; G0378; J1885; J2270; J2405; J2543; J7040; J7050; J7120; 99284

== ENCOUNTER 2019-04-18 23:54 | Emergency (ER) | payer OTHER, BC ==
[2019-04-18] MEDS ORDERED: Lidocaine 2% 100 MG/5 ML Syringe ONE (23:58)
[2019-04-19] MEDS ORDERED: Propofol 200 MG/20 ML SDV ONE (00:06)
[2019-04-19] MEDS ORDERED: fentaNYL 100 MCG/2 ML SDV ONE (00:10)
[2019-04-19] MEDS ORDERED: ceFAZolin 1 GM in Premix Bag 1 BAG IV ONE (00:14)
[2019-04-19 00:25] VITALS: BP 141/92; PULSE 121
--- NOTE | 2019-04-19 00:29 | CR ---
INDICATION: Post intubation TECHNIQUE: Chest radiograph 1 view COMPARISON: None FINDINGS: Mediastinum: The mediastinum is normal in appearance. The heart silhouette is normal in size and morphology. The endotracheal tube tip is positioned 5 cm from the radha. Lung: Small lung volumes are present with perihilar vascular crowding and minimal bibasilar atelectasis seen. No pneumothorax is identified. Bone and Soft tissue: Unremarkable for age. IMPRESSION: 1. Small lung volumes are present with perihilar vascular crowding and minimal bibasilar atelectasis seen. Dictated by Dewey Maldonado MD @ 04/19/2019 12:28:45 AM Dictated by: Dewey Maldonado MD @ 04/19/2019 00:28:50 (Electronically Signed)
[2019-04-19 00:37] LABS: BLOOD UREA NITROGEN,BUN 19 mg/dL (7.0-18.0); CARBON DIOXIDE,CO2 24.7 mmol/L (21.0-32.0); CHLORIDE,CL 107 mmol/L (98-107); GLUCOSE RANDOM 148 mg/dL (74-106); LIPASE 226 U/L (73-393); POTASSIUM,K 3.8 mmol/L (3.5-5.1); SODIUM,NA 143 mmol/L (136-148)
[2019-04-19] MEDS ORDERED: fentaNYL 50 MCG/ML SDV IVPUSH ONE (00:42)
[2019-04-19] MEDS ORDERED: Rocuronium 50 MG/5 ML Vial IVPUSH ONE (00:42)
[2019-04-19] MEDS ORDERED: Etomidate 2 MG/ML 20 ML SDV IVPUSH ONE (00:42)
[2019-04-19] MEDS ORDERED: Propofol 200 MG/20 ML SDV IVPUSH ONE (00:42)
[2019-04-19] MEDS ORDERED: propofoL 100 ML IV SCH (00:45)
[2019-04-19] MEDS ORDERED: propofoL 50 ML ONE ×2 (00:48)
--- NOTE | 2019-04-19 00:49 | CR ---
INDICATION: Orogastric tube confirmation TECHNIQUE: Abdominal radiograph 1 view COMPARISON: None FINDINGS: Bowel: The bowel gas pattern is normal without evidence of bowel obstruction. Most of the lower abdomen and pelvis is excluded. NG tube is present with the tip in the gastric body and side port just beyond the GE junction. Soft tissue: No evidence of pneumoperitoneum present. No suspicious calcifications noted. Bone: Unremarkable for age. IMPRESSION: 1. NG tube is present with the tip in the gastric body and side port just beyond the GE junction. Dictated by Dewey Maldonado MD @ 04/19/2019 12:47:36 AM Dictated by: Dewey Maldonado MD @ 04/19/2019 00:47:40 (Electronically Signed)
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
== END 2019-04-19 01:00 ==
LOC: MW.ED 23:54
DX: S01.01XA Laceration without foreign body of scalp, initial encounter (principal); S60.512A Abrasion of left hand, initial encounter; S60.511A Abrasion of right hand, initial encounter; F10.129 Alcohol abuse with intoxication, unspecified; Y90.8 Blood alcohol level of 240 mg/100 ml or more; Z88.5 Allergy status to narcotic agent; Z91.041 Radiographic dye allergy status; W22.8XXA Striking against or struck by other objects, initial encounter; W00.0XXA Fall on same level due to ice and snow, initial encounter; Y93.89 Activity, other specified; Y92.481 Parking lot as the place of occurrence of the external cause
CPT/HCPCS: 31500; 36415; 36600; 43752; 51702; 71045; 74018; 80053; 80305; 80307; 81001; 82803; 83690; 84484; 85025; 85610; 93005; 96374; 96375; 99291; J0330; J2001; J2704; J3490; 99285

== ENCOUNTER 2020-07-12 12:10 | Emergency (ER) | payer OTHER, BC ==
[2020-07-12] MEDS ORDERED: Sodium Chloride 0.9% 2.5 ML Syringe FLUSH PRN (12:42)
[2020-07-12] MEDS ORDERED: Sodium Chloride 0.9% 10 ML Syringe FLUSH PRN (12:42)
[2020-07-12] MEDS ORDERED: Sodium Chloride 0.9% 1,000 ML IV ONE (12:42)
--- NOTE | 2020-07-12 12:48 | EDM.PDOC ---
ED HPI GENERAL MEDICAL PROBLEM - General Chief Complaint: Abdominal Pain Stated Complaint: STOMACH PAIN Time Seen by Provider: 07/12/20 12:40 Source of Information: Reports: Patient History Limitations: Reports: No Limitations - History of Present Illness INITIAL COMMENTS - FREE TEXT/NARRATIVE: HISTORY AND PHYSICAL: History of present illness: Patient is a 30-year-old male who presents to the emergency room with complaints of mid abdominal pain, nausea and vomiting over the past 2-1/2 weeks. He states he chronically gets "stomach infections" and did have some Flagyl leftover from a previous treatment course. He started taking the Flagyl approximately 5 days ago, took 2 days worth but got ill as a side effect of the medication. States the nausea and vomiting started this morning with worsening abdominal pain. Patient does note that he stopped drinking alcohol approximately 2 weeks ago. Patient denies any fever, chills, headache, change in vision, syncope or near syncope. Denies any chest pain, back pain, shortness of breath or cough. Denies any diarrhea, constipation or dysuria. Has not noted any blood in urine or stool. Denies any testicular pain, redness, or swelling. No concern for STIs. Patient has been eating and drinking appropriately. Review of systems: As per history of present illness and below otherwise all systems reviewed and negative. Past medical history: As per history of present illness and as reviewed below otherwise noncontributory. Surgical history: As per history of present illness and as reviewed below otherwise noncontribu tory. Social history: See social history for further information Family history: As per history of present illness and as reviewed below otherwise noncontributory. Physical exam: General: Well developed and well nourished 30 year old male. Alert and orientated x 3. Nontoxic in appearance and in no acute distress. Vital signs are stable and have been reviewed by me. Nursing notes were reviewed. HEENT: Atraumatic, normocephalic, pupils equal and reactive bilaterally, negative for conjunctival pallor or scleral icterus, mucous membranes moist, TMs normal bilaterally, throat clear, neck supple, nontender, trachea midline. No drooling or trismus noted. No meningeal signs. No hot potato voice noted. Lungs: Clear to auscultation bilaterally. No wheezes, rales, or rhonchi. Chest nontender. Normal work of breathing, no accessory muscles used. Heart: S1S2, regular rate and rhythm without overt murmur, gallops, or rubs. No JVD. No peripheral edema Abdomen: Soft, nondistended, left mid/lower quadrant tenderness. Midline incision. Normoactive bowel sounds. Negative for masses or costovertebral tenderness. Skin: Intact, warm, dry. No lesions or rashes noted. Hematologic: No petechiae or purpra. Mucosa appropriate color and normal nail bed color and refill. Extremities: Atraumatic, moves all extremities per self without difficulty or deficits, negative for cords or calf pain. Neurovascular unremarkable. Neuro: Awake, alert, oriented. Cranial nerves II through XII unremarkable. Cerebellum unremarkable. Motor and sensory unremarkable throughout. Exam nonfocal. Psychiatric: Mood and affect are appropriate. Normal thought process. Answering questions appropriately. Notes: *This patient was seen and evaluated during the 2019 SARS-CoV-2 novel coronavirus pandemic period. Community viral transmission is ongoing at time of this encounter and the emergency department is operating under pandemic response procedures. Patient has a leukocytosis of 19. With his extensive GI history we discussed doing a contrast CT. He states the last time he had IV contrast he had significant nausea and vomiting. We will premedicating him with Zofran and Benadryl, patient is agreeable. CT shows inflammatory changes involving the proximal jejunum persistent and prevalent from CT noted on 07/2018. Differential diagnosis includes infectious enteritis or Crohn's disease. No pneumoperitoneum or drainable fluid collection. No evidence of appendicitis. Patient states he would like to try fluids and something to eat to see if he can keep fluids/food down. Will give him Cipro and Flagyl, which is what is appears he had last time during his admission. Unable to give stool sample while here, states he hasn't been having any diarrhea, will cancel order. Patient tolerated PO. Will switch him to Augmentin as he felt the PO Flagyl made him nauseated. We discussed admission vs outpatient care and close follow up with GI specialist. I did give him Dr Parmar's contact information, and encouraged him to establish care. I have talked with the patient about today's findings, in addition to providing specific details for plan of care. Reassessment at the time of disposition demonstrates that the patient is in no acute distress. The patient is stable for discharge, counseling was provided and we discussed in great detail signs and symptoms that would prompt them to return to the Emergency Department. Medication, follow up and supportive care measures were reviewed and discussed. Voices understanding and is agreeable to plan of care. Denies any further questions or concerns at this time. Diagnostics: CBC, CMP, Lipase, UA, Drug Screen, CT abd/pelvis Therapeutics: NS, Cipro and Flagyl IV Impression: Abdominal Pain Enteritis Plan: 1. You were evaluated today on an emergent basis. Take the antibiotic medications starting tomorrow. 2. You can alternate Tylenol and ibuprofen as needed for pain and fever management. Zofran for nausea management. 3. We encourage you to follow up with your primary care provider and/or GI specialist in the next few days for re-evaluation and further care/management. Dr Narda Parmar (Gastroenterology specialist) at [facility] [phone]. 4. If your symptoms should worsen, new symptoms develop or any of the signs and symptoms we discussed should arise please return to the emergency room or call 911 (if needed). Definitive disposition and diagnosis as appropriate pending reevaluation and review of above. umbilical Pain Score (Numeric/FACES): 8 - Related Data Allergies Allergy/AdvReac Type Severity Reaction Status Date / Time hydromorphone [From Dilaudid] Allergy Vomiting Verified 07/12/20 13:01 IV Dye Allergy Vomiting Uncoded 07/12/20 13:01 Home Meds: Home Meds Albuterol Sulfate [Proventil Hfa] 6.7 gm IH ASDIRECTED 04/07/17 [History] Amphetamine/Dextroamphetamine [Adderall] 20 mg PO BID 05/03/17 [History] Amoxicillin/Potassium Clav [Augmentin 875-125 Tablet] 1 each PO BID 5 Days #10 tablet 07/12/20 [Rx] Citalopram [Citalopram HBr] 20 mg PO DAILY 07/12/20 [History] Ondansetron [Zofran ODT] 4 mg PO Q6H PRN #8 tab.dis 07/12/20 [Rx] Zolpidem Tartrate 5 mg PO BEDTIME 07/12/20 [History] hydrOXYzine HCL [Atarax] 50 mg PO Q6H 07/12/20 [History] traMADol [Ultram] 50 mg PO Q4H PRN #15 tab 07/12/20 [Rx] Past Medical History - Past Health History Medical/Surgical History: Denies Medical/Surgical History Cardiovascular History: Reports: None Respiratory History: Reports: Asthma Other Respiratory History: childhood asthma, sports induced asthma Gastrointestinal History: Reports: Inflammatory Bowel Disease, Other (See Below) Other Gastrointestinal History: Mesenteric cystic lymphangioma Genitourinary History: Reports: None Other Genitourinary History: 1x UTI Other Musculoskeletal History: right hand and wrist fracture Neurological History: Reports: None Psychiatric History: Reports: ADHD, Anxiety, Panic Attack Endocrine/Metabolic History: Reports: None Hematologic History: Reports: None Immunologic History: Reports: None Oncologic (Cancer) History: Reports: None Dermatologic History: Reports: None - Infectious Disease History Infectious Disease History: Reports: Chicken Pox - Past Surgical History HEENT Surgical History: Reports: Adenoidectomy, Tonsillectomy Other HEENT Surgeries/Procedures: adenoidectomy Respiratory Surgical History: Reports: None GI Surgical History: Reports: Other (See Below) Male Surgical History: Reports: None Endocrine Surgical History: Reports: None Musculoskeletal Surgical History: Reports: None Social & Family History - Family History Family Medical History: No Pertinent Family History - Caffeine Use Caffeine Use: Reports: Energy Drinks, Soda ED ROS GENERAL - Review of Systems Review Of Systems: Comprehensive ROS is negative, except as noted in HPI. ED EXAM, GI/ABD - Physical Exam Exam: See Below (See dictation) Course - Vital Signs Last Recorded V/S: Last Vital Signs Temp 97.6 F 07/12/20 12:58 Pulse 81 07/12/20 18:37 Resp 17 07/12/20 18:37 BP 104/65 07/12/20 18:37 Pulse Ox 94 L 07/12/20 18:37 - Orders/Labs/Meds Orders: Active Orders 24 hr Category Date Time Status Saline Lock Insert [OM.PC] Stat Oth 07/12/20 12:42 Ordered Labs: Laboratory Tests 07/12/20 07/12/20 07/12/20 Range/Units 13:10 13:10 13:10 WBC 19.46 H (4.0-11.0) K/uL RBC 5.39 (4.50-5.90) M/uL Hgb 16.4 (13.0-17.0) g/dL Hct 48.5 (38.0-50.0) % MCV 90.0 (80.0-98.0) fL MCH 30.4 (27.0-32.0) pg MCHC 33.8 (31.0-37.0) g/dL RDW Std Deviation 42.5 (28.0-62.0) fl RDW Coeff of [place] 13 (11.0-15.0) % Plt Count 373 (150-400) K/uL MPV 10.60 (7.40-12.00) fL Neut % (Auto) 81.6 H (48.0-80.0) % Lymph % (Auto) 9.7 L (16.0-40.0) % [place] % (Auto) 7.3 (0.0-15.0) % Eos % (Auto) 1.2 (0.0-7.0) % Baso % (Auto) 0.2 (0.0-1.5) % Neut # (Auto) 15.9 H (1.4-5.7) K/uL Lymph # (Auto) 1.9 (0.6-2.4) K/uL [place] # (Auto) 1.4 H (0.0-0.8) K/uL Eos # (Auto) 0.2 (0.0-0.7) K/uL Baso # (Auto) 0.0 (0.0-0.1) K/uL Nucleated RBC % 0.0 /100WBC Nucleated RBCs # 0 K/uL Sodium 139 (136-148) mmol/L Potassium 4.1 (3.5-5.1) mmol/L Chloride 102 (98-107) mmol/L Carbon Dioxide 28.9 (21.0-32.0) mmol/L BUN 20 H (7.0-18.0) mg/dL Creatinine 1.2 (0.8-1.3) mg/dL Est Cr Clr Drug Dosing 97.00 mL/min Estimated GFR (MDRD) > 60.0 ml/min Glucose 126 H (74-106) mg/dL Calcium 8.3 L (8.5-10.1) mg/dL Total Bilirubin 0.3 (0.2-1.0) mg/dL AST 24 (15-37) IU/L ALT 95 H (14-63) IU/L Alkaline Phosphatase 158 H (46-116) U/L Total Protein 7.8 (6.4-8.2) g/dL Albumin 3.3 L (3.4-5.0) g/dL Globulin 4.5 H (2.6-4.0) g/dL Albumin/Globulin Ratio 0.7 L (0.9-1.6) Lipase 96 (73-393) U/L SARS-CoV-2 RNA (NITISH) (NEGATIVE) 07/12/20 Range/Units 16:09 WBC (4.0-11.0) K/uL RBC (4.50-5.90) M/uL Hgb (13.0-17.0) g/dL Hct (38.0-50.0) % MCV (80.0-98.0) fL MCH (27.0-32.0) pg MCHC (31.0-37.0) g/dL RDW Std Deviation (28.0-62.0) fl RDW Coeff of [place] (11.0-15.0) % Plt Count (150-400) K/uL MPV (7.40-12.00) fL Neut % (Auto) (48.0-80.0) % Lymph % (Auto) (16.0-40.0) % [place] % (Auto) (0.0-15.0) % Eos % (Auto) (0.0-7.0) % Baso % (Auto) (0.0-1.5) % Neut # (Auto) (1.4-5.7) K/uL Lymph # (Auto) (0.6-2.4) K/uL [place] # (Auto) (0.0-0.8) K/uL Eos # (Auto) (0.0-0.7) K/uL Baso # (Auto) (0.0-0.1) K/uL Nucleated RBC % /100WBC Nucleated RBCs # K/uL Sodium (136-148) mmol/L Potassium (3.5-5.1) mmol/L Chloride (98-107) mmol/L Carbon Dioxide (21.0-32.0) mmol/L BUN (7.0-18.0) mg/dL Creatinine (0.8-1.3) mg/dL Est Cr Clr Drug Dosing mL/min Estimated GFR (MDRD) ml/min Glucose (74-106) mg/dL Calcium (8.5-10.1) mg/dL Total Bilirubin (0.2-1.0) mg/dL AST (15-37) IU/L ALT (14-63) IU/L Alkaline Phosphatase (46-116) U/L Total Protein (6.4-8.2) g/dL Albumin (3.4-5.0) g/dL Globulin (2.6-4.0) g/dL Albumin/Globulin Ratio (0.9-1.6) Lipase (73-393) U/L SARS-CoV-2 RNA (NITISH) NEGATIVE (NEGATIVE) Meds: Medications Discontinued Medications Generic Name Dose Route Start Last Admin Trade Name Freq PRN Reason Stop Dose Admin Diphenhydramine HCl 50 mg 07/12/20 13:09 07/12/20 13:22 Diphenhydramine 50 Mg/Ml Sdv IVPUSH 07/12/20 13:10 50 mg ONETIME ONE Administration Sodium Chloride 1,000 mls @ 999 mls/hr 07/12/20 12:42 07/12/20 13:21 Normal Saline IV 07/12/20 13:42 999 mls/hr STAT ONE Administration Ciprofloxacin/Dextrose 400 mg/ 200 mls @ 200 mls/hr 07/12/20 16:00 07/12/20 16:11 Premix IV 200 mls/hr Q12H DIONICIO Administration Metronidazole 500 mg/ Premix 100 mls @ 100 mls/hr 07/12/20 15:51 07/12/20 16:12 IV 07/12/20 16:50 100 mls/hr ONETIME ONE Administration Iopamidol 100 ml 07/12/20 17:14 07/12/20 17:15 Iopamidol 755 Mg/Ml 500 Ml Multipack Bottle IVPUSH 07/12/20 17:15 100 ml ONETIME STA Administration Ketorolac Tromethamine 30 mg 07/12/20 13:09 07/12/20 13:23 Ketorolac 30 Mg/Ml Sdv IVPUSH 07/12/20 13:10 30 mg ONETIME ONE Administration Ondansetron HCl 4 mg 07/12/20 13:09 07/12/20 13:23 Ondansetron 4 Mg/2 Ml Sdv IVPUSH 07/12/20 13:10 4 mg ONETIME ONE Administration Sodium Chloride 10 ml 07/12/20 12:42 07/12/20 13:22 Sodium Chloride 0.9% 10 Ml Syringe FLUSH 10 ml ASDIRECTED PRN Administration Keep Vein Open Sodium Chloride 2.5 ml 07/12/20 12:42 07/12/20 13:22 Sodium Chloride 0.9% 2.5 Ml Syringe FLUSH 2.5 ml ASDIRECTED PRN Administration Keep Vein Open Tramadol HCl 50 mg 07/12/20 17:46 07/12/20 18:08 Tramadol 50 Mg Tab PO 07/12/20 17:47 50 mg ONETIME ONE Administration Departure - Departure Time of Disposition: 19:00 Disposition: Home, Self-Care 01 Clinical Impression: Enteritis, Abdominal pain - Discharge Information Prescriptions: Amoxicillin/Potassium Clav [Augmentin 875-125 Tablet] 1 each PO BID 5 Days #10 tablet traMADol [Ultram] 50 mg PO Q4H PRN #15 tab PRN Reason: Pain Ondansetron [Zofran ODT] 4 mg PO Q6H PRN #8 tab.dis PRN Reason: Nausea Instructions: Abdominal Pain, Adult, [id number] Referrals: Ken Devlin MD [Primary Care Provider] - Forms: ED Department Discharge Additional Instructions: The following information is given to patients seen in the emergency department who are being discharged to home. This information is to outline your options for follow-up care. We provide all patients seen in our emergency department with a follow-up referral. The need for follow-up, as well as the timing and circumstances, are variable depending upon the specifics of your emergency department visit. If you don't have a primary care physician on staff, we will provide you with a referral. We always advise you to contact your personal physician following an emergency department visit to inform them of the circumstance of the visit and for follow-up with them and/or the need for any referrals to a consulting specialist. The emergency department will also refer you to a specialist when appropriate. This referral assures that you have the opportunity for follow-up care with a specialist. All of these measure are taken in an effort to provide you with optimal care, which includes your follow-up. Under all circumstances we always encourage you to contact your private physician who remains a resource for coordinating your care. When calling for follow-up care, please make the office aware that this follow-up is from your recent emergency room visit. If for any reason you are refused follow-up, please contact the [facility] Emergency Department at and asked to speak to the emergency department charge nurse. [facility] [address] [place] [address] [facility] [address] [place] [address] Thank you for choosing the [facility] emergency department in [place] for your medical needs today. It was a pleasure caring for you. Today you were seen in the emergency department for abdominal pain. 1. You were evaluated today on an emergent basis. Take the medications starting tomorrow. 2. You can alternate Tylenol and ibuprofen as needed for pain and fever management. Zofran for nausea management. 3. We encourage you to follow up with your primary care provider and/or GI specialist in the next few days for re-evaluation and further care/management. Dr Narda Parmar (Gastroenterology specialist) at [facility] in [place] [phone]. 4. If your symptoms should worsen, new symptoms develop or any of the signs and symptoms we discussed should arise please return to the emergency room or call 911 (if needed). Sepsis Event Note (ED) - Focused Exam Vital Signs: Vital Signs Temp Pulse Resp BP Pulse Ox 07/12/20 18:37 81 17 104/65 94 L 07/12/20 17:18 75 16 114/63 95 07/12/20 16:21 80 16 135/88 97 07/12/20 12:58 97.6 F 82 16 125/86 97 - My Orders Last 24 Hours: My Active Orders 07/12/20 12:42 Saline Lock Insert [OM.PC] Stat - Assessment/Plan Last 24 Hours: My Active Orders 07/12/20 12:42 Saline Lock Insert [OM.PC] Stat
[2020-07-12] MEDS ORDERED: Ondansetron 4 MG/2 ML SDV IVPUSH ONE (13:09)
[2020-07-12] MEDS ORDERED: Ketorolac 30 MG/ML SDV IVPUSH ONE (13:09)
[2020-07-12] MEDS ORDERED: diphenhydrAMINE 50 MG/ML SDV IVPUSH ONE (13:09)
[2020-07-12 13:56] LABS: BLOOD UREA NITROGEN,BUN 20 mg/dL (7.0-18.0); CARBON DIOXIDE,CO2 28.9 mmol/L (21.0-32.0); CHLORIDE,CL 102 mmol/L (98-107); GLUCOSE RANDOM 126 mg/dL (74-106); POTASSIUM,K 4.1 mmol/L (3.5-5.1); SODIUM,NA 139 mmol/L (136-148)
--- NOTE | 2020-07-12 15:37 | CT ---
Indication: Abdominal pain. Technique: CT of the abdomen and pelvis. Coronal/sagittal reconstruction images. 100 cc of Isovue 370 IV. Comparison: CT of the abdomen and pelvis, 07/25/2018. Findings: Lung bases: There is no pleural or pericardial effusion. The heart size is normal. No acute airspace disease. No basilar pneumothorax. Abdomen/pelvis: Liver morphology is non cirrhotic. No inflammatory changes adjacent to the gallbladder. No radiopaque gallstone. No adrenal mass. There are symmetric nephrograms. There is no solid renal mass or perinephric fluid collection. The spleen size is normal. There is no pancreatic mass or pancreatic duct dilation. No glandular atrophy. There is no free air. The prostate and urinary bladder are normal. There is no evidence of a small bowel or colonic obstruction. There are inflammatory changes with mural thickening involving the proximal jejunum. See image 82, series 2. There are perienteric lymph nodes which may be reactive in nature. There is no drainable fluid collection. There is no pneumoperitoneum. The visceral artery branches are widely patent. Non aneurysmal abdominal aorta. There is no pelvic sidewall or retroperitoneal lymphadenopathy. Anastomotic sutures are present in the right lower quadrant. This is seen on image 125, series 201. The IVC is patent. Portal vein and its branches, splenic vein, and SMV are patent. The bone windows demonstrate no suspicious bone lesions. Vertebral body heights are maintained on sagittal reconstruction images. Probable limbus vertebra at L4. No change when compared with 07/2018. Impression: 1. Inflammatory changes involving the proximal jejunum persist, and were present and described on the CT from 07/2018. 2. The differential diagnosis includes infectious enteritis or Crohn disease. 3. There is no pneumoperitoneum or drainable fluid collection. 4. No evidence on CT for acute appendicitis. Please note that all CT scans at this facility use dose modulation, iterative reconstruction, and/or weight-based dosing when appropriate to reduce radiation dose to as low as reasonably achievable. Dictated by Manuel Rodriguez MD @ 07/12/2020 3:35:[address] Manuel Rodriguez @ Jul 12 2020 3:35PM
[2020-07-12] MEDS ORDERED: metroNIDAZOLE/Normal Saline 500 MG in Premix Bag 1 BAG IV ONE (15:51)
[2020-07-12] MEDS ORDERED: Ciprofloxacin in D5W 400 MG in Premix Bag 1 BAG IV SCH ×2 (16:00)
[2020-07-12] MEDS ORDERED: Iopamidol 755 MG/ML 500 ML Multipack Bottle IVPUSH STA (17:14)
[2020-07-12] MEDS ORDERED: traMADol 50 MG Tab PO ONE (17:46)
[2020-07-12 18:38] VITALS: BP 104/65; PULSE 81
== END 2020-07-12 18:54 | disposition home or self-care (01) ==
LOC: MW.ED 12:10
DX: K52.9 Noninfective gastroenteritis and colitis, unspecified (principal); J45.909 Unspecified asthma, uncomplicated; Z88.5 Allergy status to narcotic agent; Z91.041 Radiographic dye allergy status; Z79.899 Other long term (current) drug therapy; Z20.822 Contact with and (suspected) exposure to COVID-19
CPT/HCPCS: 36415; 74177; 80053; 83690; 85025; 87635; 96365; 96367; 96375; 99284; A9270; J0744; J1200; J1885; J2405; J3490; J7030; Q9967; U0002